=== PATIENT | female | born 1990 | race American Indian/Alaskan Native ===

== ENCOUNTER 2019-08-30 02:35 | Inpatient (IN) | payer MEDICAID ==
[2019-08-30] MEDS ORDERED: ONDANSETRON 4 MG ODT TAB PO ONE (03:04)
[2019-08-30 03:20] LABS: Basophils # (Auto) 0.1 K/mm3 (0.0-0.1); Basophils % (Auto) 0.9 % (0.0-1.8); Hematocrit 38.4 % (30.3-42.9); Hemoglobin 12.7 gm/dl (10.1-14.3); Lymphocytes # (Auto) 0.8 K/mm3 (1.2-5.4); Lymphocytes % (Auto) 10.7 % (13.4-35.0); Mean Corpuscular HGB Conc 33 % (30-34); Mean Corpuscular Volume 92 fl (79-97); Monocytes # (Auto) 0.1 K/mm3 (0.0-0.8); Monocytes % (Auto) 1.5 % (0.0-7.3); Platelet Count 347 K/mm3 (140-440); Red Blood Count 4.16 M/mm3 (3.65-5.03); Red Cell Distribution Width 14.3 % (13.2-15.2)
[2019-08-30 03:30] LABS: Alanine Aminotransferase 16 units/L (7-56); BUN/Creatinine Ratio 20; Blood Urea Nitrogen 16 mg/dL (7-17); Calcium 9.3 mg/dL (8.4-10.2); Hemolysis Index 4
[2019-08-30] MEDS ORDERED: ONDANSETRON 4 MG/2 ML INJ IV ONE (03:30)
[2019-08-30] MEDS ORDERED: SODIUM CHLORIDE 0.9% 1000 ML 1,000 ML IV ONE ×2 (03:30→03:31)
[2019-08-30] MEDS ORDERED: FAMOTIDINE 20 MG/2 ML INJ IV ONE (03:30)
[2019-08-30] MEDS ORDERED: DEXTROSE 50% IN WATER (25GM) 50 ML SYRINGE IV PRN ×2 (03:31→12:52)
[2019-08-30] MEDS ORDERED: MORPHINE 4 MG/1 ML INJ IV ONE (03:54)
--- NOTE | 2019-08-30 03:55 | Emergency Department Report ---
ED Abdominal Pain HPI - General Chief Complaint: Chest Pain Stated Complaint: ABDOMINAL/CHEST PAIN Time Seen by Provider: 08/30/19 03:45 Source: patient Mode of arrival: Ambulatory Limitations: No Limitations - History of Present Illness Initial Comments: 28-year-old female the past medical history insulin-dependent diabetes and recently diagnosed hypertension presents to the hospital planing of nausea, vomiting, abdominal pain, chest pain for the past 2 days. P.o. intolerance reported. Patient denies hematemesis, fever, or previous abdominal surgeries. Patient states she has been compliant with her insulin last dose last evening. She was recently prescribed lisinopril for newly diagnosed hypertension but has not yet initiated the medication. Patient's pain is greatest in the upper abdomen and radiates to the chest. Severity scale (0 -10): 8 - Related Data Allergies Allergy/AdvReac Type Severity Reaction Status Date / Time No Known Allergies Allergy Unverified 08/30/19 02:45 ED Review of Systems ROS: Stated complaint: ABDOMINAL/CHEST PAIN Other details as noted in HPI Comment: All other systems reviewed and negative ED Past Medical Hx - Past Medical History Hx Hypertension: Yes Hx Diabetes: Yes (Type 1 DM) - Social History Smoking Status: Never Smoker Substance Use Type: None ED Physical Exam - General Limitations: No Limitations - Other Other exam information: General: No acute distress Head: Atraumatic Eyes: normal appearance ENT: Moist mucous membranes Neck: Normal appearance, no midline tenderness Chest: Clear to auscultation bilaterally CV: Regular rate and rhythm Abdomen: Soft, normal bowel sounds, epigastric tenderness to palpation without rebound or guarding Back: Normal inspection Extremity: Normal inspection, full range of motion Neuro: Alert O x 3, no facial asymmetry, speech clear, no gross motor sensory deficit Psych: Appropriate behavior Skin: No rash ED Course Vital Signs 08/30/19 08/30/19 08/30/19 02:39 03:36 03:44 Temperature 99.2 F 98.3 F Pulse Rate 124 H 123 H Respiratory 18 20 Rate Blood Pressure 176/122 Blood Pressure 196/123 [Left] O2 Sat by Pulse 100 100 100 Oximetry 08/30/19 08/30/19 08/30/19 03:46 04:00 04:16 Temperature Pulse Rate 122 H 124 H 123 H Respiratory 16 17 15 Rate Blood Pressure 196/123 196/123 196/123 Blood Pressure [Left] O2 Sat by Pulse 100 100 100 Oximetry 08/30/19 08/30/19 08/30/19 04:31 04:45 04:51 Temperature Pulse Rate 122 H 121 H Respiratory 16 18 20 Rate Blood Pressure 203/140 Blood Pressure [Left] O2 Sat by Pulse 99 100 Oximetry 08/30/19 08/30/19 08/30/19 04:57 05:07 05:15 Temperature Pulse Rate 116 H 118 H Respiratory 20 20 20 Rate Blood Pressure 203/140 164/116 Blood Pressure [Left] O2 Sat by Pulse 100 100 100 Oximetry 08/30/19 08/30/19 08/30/19 05:21 05:31 05:45 Temperature Pulse Rate 120 H 121 H Respiratory 20 19 17 Rate Blood Pressure 164/116 203/140 Blood Pressure [Left] O2 Sat by Pulse 100 100 Oximetry 08/30/19 08/30/19 08/30/19 06:00 06:03 06:15 Temperature Pulse Rate 121 H 116 H Respiratory 18 20 22 Rate Blood Pressure 154/101 154/101 Blood Pressure [Left] O2 Sat by Pulse 100 100 Oximetry 08/30/19 08/30/19 08/30/19 06:31 06:45 07:00 Temperature Pulse Rate 109 H 107 H 103 H Respiratory 18 13 14 Rate Blood Pressure 154/101 154/101 95/58 Blood Pressure [Left] O2 Sat by Pulse 100 100 100 Oximetry 08/30/19 08/30/19 08/30/19 07:15 08:15 08:29 Temperature Pulse Rate 103 H 117 H 105 H Respiratory 13 18 16 Rate Blood Pressure 95/58 Blood Pressure 142/82 95/58 [Left] O2 Sat by Pulse 100 100 100 Oximetry 08/30/19 08/30/19 12:00 15:17 Temperature Pulse Rate 117 H 118 H Respiratory 18 Rate Blood Pressure Blood Pressure 102/72 123/80 [Left] O2 Sat by Pulse 100 Oximetry - EJ/Peripheral Line Neck L Time Out Performed: Yes Indications: nurses unable to establis Skin Cleansed in Sterile Fashion: Yes Size: 20 Dressing Placed: Tegaderm, tape Patient Tolerated Procedure: well, no complications ED Medical Decision Making - Lab Data Result diagrams: 08/30/19 02:52 08/30/19 15:29 Lab Results 05/17/20 05/17/20 05/17/20 Range/Units 02:52 02:52 02:52 WBC 7.8 (4.5-11.0) K/mm3 RBC 4.16 (3.65-5.03) M/mm3 Hgb 12.7 (10.1-14.3) gm/dl Hct 38.4 (30.3-42.9) % MCV 92 (79-97) fl MCH 31 (28-32) pg MCHC 33 (30-34) % RDW 14.3 (13.2-15.2) % Plt Count 347 (140-440) K/mm3 Lymph % (Auto) 10.7 L (13.4-35.0) % [place] % (Auto) 1.5 (0.0-7.3) % Eos % (Auto) 0.0 (0.0-4.3) % Baso % (Auto) 0.9 (0.0-1.8) % Lymph # 0.8 L (1.2-5.4) K/mm3 [place] # 0.1 (0.0-0.8) K/mm3 Eos # 0.0 (0.0-0.4) K/mm3 Baso # 0.1 (0.0-0.1) K/mm3 Seg Neutrophils % 86.9 H (40.0-70.0) % Seg Neutrophils # 6.8 (1.8-7.7) K/mm3 VBG pH (7.320-7.420) Sodium 129 L (137-145) mmol/L Potassium 4.3 (3.6-5.0) mmol/L Chloride 92.0 L (98-107) mmol/L Carbon Dioxide 10 L (22-30) mmol/L Anion Gap 31 mmol/L BUN 16 (7-17) mg/dL Creatinine 0.8 (0.7-1.2) mg/dL Estimated GFR > 60 ml/min BUN/Creatinine Ratio 20 % Glucose 394 H (65-100) mg/dL Calcium 9.3 (8.4-10.2) mg/dL Total Bilirubin 0.70 (0.1-1.2) mg/dL AST 15 (5-40) units/L ALT 16 (7-56) units/L Alkaline Phosphatase 97 (35-129) units/L Total Protein 8.3 H (6.3-8.2) g/dL Albumin 4.0 (3.9-5) g/dL Albumin/Globulin Ratio 0.9 % Lipase (13-60) units/L HCG, Qual Negative (Negative) 08/30/19 08/30/19 Range/Units 02:52 Unknown WBC (4.5-11.0) K/mm3 RBC (3.65-5.03) M/mm3 Hgb (10.1-14.3) gm/dl Hct (30.3-42.9) % MCV (79-97) fl MCH (28-32) pg MCHC (30-34) % RDW (13.2-15.2) % Plt Count (140-440) K/mm3 Lymph % (Auto) (13.4-35.0) % [place] % (Auto) (0.0-7.3) % Eos % (Auto) (0.0-4.3) % Baso % (Auto) (0.0-1.8) % Lymph # (1.2-5.4) K/mm3 [place] # (0.0-0.8) K/mm3 Eos # (0.0-0.4) K/mm3 Baso # (0.0-0.1) K/mm3 Seg Neutrophils % (40.0-70.0) % Seg Neutrophils # (1.8-7.7) K/mm3 VBG pH 7.306 L (7.320-7.420) Sodium (137-145) mmol/L Potassium (3.6-5.0) mmol/L Chloride (98-107) mmol/L Carbon Dioxide (22-30) mmol/L Anion Gap mmol/L BUN (7-17) mg/dL Creatinine (0.7-1.2) mg/dL Estimated GFR ml/min BUN/Creatinine Ratio % Glucose (65-100) mg/dL Calcium (8.4-10.2) mg/dL Total Bilirubin (0.1-1.2) mg/dL AST (5-40) units/L ALT (7-56) units/L Alkaline Phosphatase (35-129) units/L Total Protein (6.3-8.2) g/dL Albumin (3.9-5) g/dL Albumin/Globulin Ratio % Lipase 15 (13-60) units/L HCG, Qual (Negative) - EKG Data -: EKG Interpreted by Me EKG shows normal: sinus rhythm, ST-T waves (no stemi) Rate: tachycardia (121) - Radiology Data Radiology results: report reviewed . CHEST 1 VIEW INDICATION / CLINICAL INFORMATION: cp. COMPARISON: None available. FINDINGS: SUPPORT DEVICES: None. HEART / MEDIASTINUM: No significant abnormality. LUNGS / PLEURA: No significant pulmonary or pleural abnormality.. No pneumothorax. ADDITIONAL FINDINGS: No significant additional findings. IMPRESSION: 1. No acute findings. - Medical Decision Making Patient presents to the hospital with nausea, vomiting, abdominal pain. Positive DKA. CT abdomen pelvis without acute findings. Blood pressure trending downward with treatment. Patient provided pain medicine, insulin drip, Zofran, normal saline. UA collection pending at disposition - Differential Diagnosis Gastroparesis, pancreatitis, biliary colic, DKA Critical Care Time: Yes Critical care time in (mins) excluding proc time.: 35 Critical care attestation.: If time is entered above; I have spent that time in minutes in the direct care of this critically ill patient, excluding procedure time. ED Disposition Clinical Impression: DKA (diabetic ketoacidoses), Uncontrolled hypertension, Nausea and vomiting Disposition: -09 OP ADMIT IP TO THIS HOSP Is pt being admited?: Yes Condition: Stable Time of Disposition: 05:44 (Dr sibley)
--- NOTE | 2019-08-30 03:55 | XRay Report ---
CHEST 1 VIEW INDICATION / CLINICAL INFORMATION: cp. COMPARISON: None available. FINDINGS: SUPPORT DEVICES: None. HEART / MEDIASTINUM: No significant abnormality. LUNGS / PLEURA: No significant pulmonary or pleural abnormality.. No pneumothorax. ADDITIONAL FINDINGS: No significant additional findings. IMPRESSION: 1. No acute findings. Signer Name: Miguel Colon MD Signed: 08/30/2019 3:51 AM Workstation Name: [id number]
--- NOTE | 2019-08-30 05:22 | Cat Scan Report ---
CT abdomen pelvis wo con INDICATION: upper abd pain, n,v. TECHNIQUE: All CT scans at this location are performed using the following dose modulation technique: Automated exposure control. Helical slices were obtained through the abdomen and pelvis. No contrast is adminis tered COMPARISON: None available. FINDINGS: Abdomen: Lung bases are clear. There is a hiatal hernia. The liver, spleen, pancreas, adrenal glands, and kidneys show no acute abnormality. The aorta is normal in diameter. There is no obstruction, inf lammation, or free air. There are no abnormal fluid collections. The appendix is unremarkable. Pelvis: Urinary bladder is significantly distended. There is no bowel obstruction or inflammation. There is no adenopathy. On review of bone windows, no acute osseous abnormalities are seen. IMPRESSION: There is significant distention of the urinary bladder. There is a small hiatal hernia. There is no bowel obstruction, inflammation, or free air. There are no abnormal collections. Signer Name: Miguel Colon MD Signed: 08/30/2019 5:18 AM Workstation Name: [id number]
[2019-08-30] MEDS: INSULIN REGULAR, HUMAN 100 UNITS in SODIUM CHLORIDE 0.9% 99 ML IV SCH (05:29)
[2019-08-30] MEDS ORDERED: HYDROmorphone 1 MG/1 ML INJ IV ONE (05:44)
[2019-08-30 06:10] LABS: BUN/Creatinine Ratio 23; Blood Urea Nitrogen 18 mg/dL (7-17); Hemolysis Index 10
[2019-08-30 07:11] LABS: Bacteria,Urine 1+ /HPF (Negative); Bilirubin,Urine NEG (Negative); Blood,Urine NEG (Negative); Color,Urine Yellow (Yellow); Mucus,Urine FEW /HPF; Urobilinogen,Urine < 2.0 mg/dL (<2.0)
[2019-08-30] MEDS ORDERED: D5W/0.45% NACL/KCL 20 MEQ 20 MEQ/1,000 ML BAG IV SCH (08:00)
[2019-08-30] MEDS ORDERED: POTASSIUM CHLORIDE 10 MEQ 10 MEQ/100 ML BAG IV PRN (08:00)
--- NOTE | 2019-08-30 08:04 | History and Physical Report ---
History of Present Illness Date of examination: 08/30/19 Date of admission: 08/30/19 Chief complaint: DKA History of present illness: Patient is a 28-year-old female with past medical history of insulin-dependent diabetes (on insulin pump ) and hypertension presented to the hospital with complaint of chest pain that started for 2 days reproducible and also abdominal pain. Per the patient she was seen at an urgent care facility was noted to have a blood sugar of over 400 at the time but told she was not in DKA but diagnosed with a UTI and was sent home on antibiotics which unfortunately she was unable to feel. She discontinued her insulin pump due to intermittent nausea and vomiting and abdominal pain and was able to tolerate p.o. and today the symptoms worsened prompting her to come to the hospital where she was noted to be in diabetic ketoacidosis. She was also recently diagnosed with hypertension and started on lisinopril but has not started the medication yet. At the time of my evaluation she reported that the chest pain is improved but still feels nauseous although no further vomiting. She still expresses the abdominal pain. Denies any fever. Past History Past Medical History: diabetes, hypertension Past Surgical History: No surgical history Social history: no significant social history Family history: no significant family history Medications and Allergies Allergies Allergy/AdvReac Type Severity Reaction Status Date / Time No Known Allergies Allergy Unverified 08/30/19 02:45 Active Meds: Active Medications Dextrose (D50w (25gm) Syringe) 0 ml IV Q30MIN PRN; Protocol PRN Reason: Hypoglycemia Insulin Human Regular 100 (units/ Sodium Chloride) 100 mls @ 1 mls/hr IV TITR JOSHUA; Protocol Last Titration: 08/30/19 06:41 Dose: 5 units/hr, 5 mls/hr Documented by: Potassium Chloride/Dextrose/Sod Cl (D5w/0.45% Nacl/Kcl 20 Meq) 20 meq in 1,000 mls @ 125 mls/hr IV DIRECT JOSHUA Potassium Chloride (Kcl 10meq/100ml) 10 meq in 100 mls @ 100 mls/hr IV Q1H JOSHUA Stop: 08/30/19 11:59 Sodium Chloride (Nacl 0.9% 1000 Ml) 3,000 mls @ 999 mls/hr IV BOLUS ONE Stop: 08/30/19 10:57 Review of Systems All systems: negative Constitutional: fatigue, weakness, poor appetite Gastrointestinal: nausea, vomiting Exam - Physical Exam Narrative exam: VITAL SIGNS: Reviewed. GENERAL: The patient appears normally developed, lethargic vital signs as documented. HEAD: No signs of head trauma. EYES: Pupils are equal. Extraocular motions intact. EARS: Hearing grossly intact. MOUTH: Oropharynx is normal. NECK: No adenopathy, no JVD. CHEST: Chest with clear breath sounds bilaterally. No wheezes, rales, or rhonchi. CARDIAC: Regular rate and rhythm. S1 and S2, without murmurs, gallops, or rubs. VASCULAR: No Edema. Peripheral pulses normal and equal in all extremities. ABDOMEN: Soft, non tender and non distended. No rebound or guarding, and no masses palpated. Bowel Sounds normal. MUSCULOSKELETAL: Good range of motion of all major joints. Extremities without clubbing, cyanosis or edema. NEUROLOGIC EXAM: Alert and oriented x 3 No focal sensory or strength deficits. Speech normal. Follows commands. PSYCHIATRIC: Mood normal. SKIN: detail exam as documented in skin assessment - Constitutional Vitals: Temp Pulse Resp BP Pulse Ox 98.3 F 103 H 13 95/58 100 08/30/19 03:44 08/30/19 07:15 08/30/19 07:15 08/30/19 07:15 08/30/19 07:15 Results - Labs CBC & Chem 7: 08/30/19 02:52 08/30/19 08:01 Labs: Laboratory Last Values WBC 7.8 K/mm3 (4.5-11.0) 08/30/19 02:52 RBC 4.16 M/mm3 (3.65-5.03) 08/30/19 02:52 Hgb 12.7 gm/dl (10.1-14.3) 08/30/19 02:52 Hct 38.4 % (30.3-42.9) 08/30/19 02:52 MCV 92 fl (79-97) 08/30/19 02:52 MCH 31 pg (28-32) 08/30/19 02:52 MCHC 33 % (30-34) 08/30/19 02:52 RDW 14.3 % (13.2-15.2) 08/30/19 02:52 Plt Count 347 K/mm3 (140-440) 08/30/19 02:52 Lymph % (Auto) 10.7 % (13.4-35.0) L 08/30/19 02:52 [place] % (Auto) 1.5 % (0.0-7.3) 08/30/19 02:52 Eos % (Auto) 0.0 % (0.0-4.3) 08/30/19 02:52 Baso % (Auto) 0.9 % (0.0-1.8) 08/30/19 02:52 Lymph # 0.8 K/mm3 (1.2-5.4) L 08/30/19 02:52 [place] # 0.1 K/mm3 (0.0-0.8) 08/30/19 02:52 Eos # 0.0 K/mm3 (0.0-0.4) 08/30/19 02:52 Baso # 0.1 K/mm3 (0.0-0.1) 08/30/19 02:52 Seg Neutrophils % 86.9 % (40.0-70.0) H 08/30/19 02:52 Seg Neutrophils # 6.8 K/mm3 (1.8-7.7) 08/30/19 02:52 VBG pH 7.306 (7.320-7.420) L 08/30/19 02:52 Sodium 130 mmol/L (137-145) L 08/30/19 05:31 Potassium 4.5 mmol/L (3.6-5.0) 08/30/19 05:31 Chloride 94.8 mmol/L (98-107) L 08/30/19 05:31 Carbon Dioxide 8 mmol/L (22-30) L* 08/30/19 05:31 Anion Gap 32 mmol/L 08/30/19 05:31 BUN 18 mg/dL (7-17) H 08/30/19 05:31 Creatinine 0.8 mg/dL (0.7-1.2) 08/30/19 05:31 Estimated GFR > 60 ml/min 08/30/19 05:31 BUN/Creatinine Ratio 23 % 08/30/19 05:31 Glucose 393 mg/dL (65-100) H 08/30/19 05:31 Calcium 9.0 mg/dL (8.4-10.2) 08/30/19 05:31 Phosphorus 3.00 mg/dL (2.5-4.5) 08/30/19 05:31 Total Bilirubin 0.70 mg/dL (0.1-1.2) 08/30/19 02:52 AST 15 units/L (5-40) 08/30/19 02:52 ALT 16 units/L (7-56) 08/30/19 02:52 Alkaline Phosphatase 97 units/L (35-129) 08/30/19 02:52 Total Protein 8.3 g/dL (6.3-8.2) H 08/30/19 02:52 Albumin 4.0 g/dL (3.9-5) 08/30/19 02:52 Albumin/Globulin Ratio 0.9 % 08/30/19 02:52 Lipase 15 units/L (13-60) 08/30/19 Unknown HCG, Qual Negative (Negative) 08/30/19 02:52 Urine Color Yellow (Yellow) 08/30/19 05:42 Urine Turbidity Cloudy (Clear) 08/30/19 05:42 Urine pH 5.0 (5.0-7.0) 08/30/19 05:42 Ur Specific [place] 1.022 (1.003-1.030) 08/30/19 05:42 Urine Protein 100 mg/dl mg/dL (Negative) 08/30/19 05:42 Urine Glucose (UA) >=500 mg/dL (Negative) 08/30/19 05:42 Urine Ketones 80 mg/dL (Negative) 08/30/19 05:42 Urine Blood Neg (Negative) 08/30/19 05:42 Urine Nitrite Neg (Negative) 08/30/19 05:42 Urine Bilirubin Neg (Negative) 08/30/19 05:42 Urine Urobilinogen < 2.0 mg/dL (<2.0) 08/30/19 05:42 Ur Leukocyte Esterase Neg (Negative) 08/30/19 05:42 Urine WBC (Auto) 4.0 /HPF (0.0-6.0) 08/30/19 05:42 Urine RBC (Auto) 2.0 /HPF (0.0-6.0) 08/30/19 05:42 U Epithel Cells (Auto) 43.0 /HPF (0-13.0) H 08/30/19 05:42 Urine Bacteria (Auto) 1+ /HPF (Negative) 08/30/19 05:42 Urine Mucus Few /HPF 08/30/19 05:42 Terry/IV: IV Catheter Type [Left INT / Saline Lock External Jugular] Assessment and Plan Assessment and plan: Patient is a 28-year-old female with past medical history of insulin-dependent diabetes (on insulin pump ) and hypertension presented to the hospital with complaint of chest pain that started for 2 days reproducible and also abdominal pain. Per the patient she was seen at an urgent care facility was noted to have a blood sugar of over 400 at the time but told she was not in DKA but diagnosed with a UTI and was sent home on antibiotics which unfortunately she was unable to feel. She discontinued her insulin pump due to intermittent nausea and vomiting and abdominal pain and was able to tolerate p.o. and today the symptoms worsened prompting her to come to the hospital where she was noted to be in diabetic ketoacidosis. She was also recently diagnosed with hypertension and started on lisinopril but has not started the medication yet. At the time of my evaluation she reported that the chest pain is improved but still feels nauseous although no further vomiting. She still expresses the abdominal pain. Denies any fever. Diabetic ketoacidosis Metabolic acidosis severe Abdominal pain Chest pain secondary to costochondritis Hiatal hernia Persistent nausea vomiting Plan Admit patient to ICU Critical care consult Insulin drip has been started will give additional 3 L of bolus of fluid Sodium bicarb Discussed with nursing staff about transition plan transition insulin is ordered Pain control Restart blood pressure medications. DVT and GI prophylaxis Critical care time 75 minutes Advance Directives: Yes Plan of care discussed with patient/family: Yes
[2019-08-30] MEDS ORDERED: SODIUM CHLORIDE 0.9% 1000 ML 3,000 ML IV ONE (08:15)
[2019-08-30] MEDS: KETOROLAC 30 MG/1 ML INJ IV SCH ×4 (08:53→23:47)
[2019-08-30] MEDS ORDERED: SODIUM BICARBONATE 50 MEQ in SODIUM CHLORIDE 0.9% 1000 ML 1,000 ML IV SCH (09:00)
[2019-08-30 09:01] LABS: BUN/Creatinine Ratio 24; Blood Urea Nitrogen 17 mg/dL (7-17); Calcium 8.4 mg/dL (8.4-10.2); Hemolysis Index 12
[2019-08-30 09:33] LABS: Chol/HDL Ratio 1.45 %
--- NOTE | 2019-08-30 10:31 | Consultation ---
Medications and Allergies Allergies Allergy/AdvReac Type Severity Reaction Status Date / Time No Known Allergies Allergy Unverified 08/30/19 02:45 Active Meds: Active Medications Dextrose (D50w (25gm) Syringe) 0 ml IV Q30MIN PRN; Protocol PRN Reason: Hypoglycemia Gabapentin (Gabapentin) 400 mg PO Q8HR JOSHUA Insulin Human Regular 100 (units/ Sodium Chloride) 100 mls @ 1 mls/hr IV TITR JOSHUA; Protocol Last Titration: 08/30/19 10:14 Dose: 0 units/hr, 0 mls/hr Documented by: Potassium Chloride/Dextrose/Sod Cl (D5w/0.45% Nacl/Kcl 20 Meq) 20 meq in 1,000 mls @ 125 mls/hr IV DIRECT JOSHUA Potassium Chloride (Kcl 10meq/100ml) 10 meq in 100 mls @ 100 mls/hr IV Q1H PRN PRN Reason: FOR K REPLACEMENT/DKA PROTOCOL Sodium Chloride (Nacl 0.9% 1000 Ml) 3,000 mls @ 999 mls/hr IV BOLUS ONE Stop: 08/30/19 11:15 Last Admin: 08/30/19 08:21 Dose: 999 mls/hr Documented by: Sodium Bicarbonate 50 meq/ (Sodium Chloride) 1,050 mls @ 100 mls/hr IV DIRECT JOSHUA Last Admin: 08/30/19 09:30 Dose: 100 mls/hr Documented by: Ketorolac Tromethamine (Toradol) 15 mg IV Q6HR JOSHUA Stop: 09/04/19 08:59 Last Admin: 08/30/19 08:53 Dose: 15 mg Documented by: Levothyroxine Sodium (Synthroid) 25 mcg PO DAILY@0600 JOSHUA Metoclopramide HCl (Reglan) 10 mg IV Q6H PRN PRN Reason: Nausea And Vomiting Sertraline HCl (Zoloft) 25 mg PO QDAY JOSHUA Physical Examination Vital signs: Vital Signs Temp Pulse Resp BP Pulse Ox 99.2 F 124 H 18 176/122 100 08/30/19 02:39 08/30/19 02:39 08/30/19 02:39 08/30/19 02:39 08/30/19 02:39 Results - Laboratory Findings CBC and BMP: 08/30/19 02:52 08/30/19 08:01 Abnormal lab findings: Abnormal Labs 0508/30/19 08/30/19 02:52 02:52 02:52 Lymph % (Auto) 10.7 L Lymph # 0.8 L Seg Neutrophils % 86.9 H VBG pH 7.306 L Sodium 129 L Chloride 92.0 L Carbon Dioxide 10 L BUN Glucose 394 H Hemoglobin A1c Total Protein 8.3 H HDL Cholesterol U Epithel Cells (Auto) 08/30/19 08/30/19 08/30/19 05:31 05:42 08:01 Lymph % (Auto) Lymph # Seg Neutrophils % VBG pH Sodium 130 L Chloride 94.8 L 107.7 H Carbon Dioxide 8 L* 11 L BUN 18 H Glucose 393 H 211 H Hemoglobin A1c Total Protein HDL Cholesterol U Epithel Cells (Auto) 43.0 H 08/30/19 08/30/19 08:33 08:33 Lymph % (Auto) Lymph # Seg Neutrophils % VBG pH Sodium Chloride Carbon Dioxide BUN Glucose Hemoglobin A1c 11.6 H Total Protein HDL Cholesterol 125 H U Epithel Cells (Auto)
[2019-08-30] MEDS: SERTRALINE 25 MG TAB PO SCH (10:57)
--- NOTE | 2019-08-30 11:06 | Consultation ---
History of Present Illness - History of Present Illness This is a female with a known history of diabetes. She had been doing well. She was recently diagnosed with HTN. She began having abdominal pain associated with nausea and emesis. She reported that the pain radiated to her chest. She also reported signif decrease in appetite. She can to er and was found to be in DKA. She was started on fluids and insulin drip. She reports a hx of DKA in the past. She is on insulin pump and take humalog. She reports epigatric discomfort Past History Past Medical History: diabetes, hypertension, other (reflux) Past Surgical History: No surgical history Social history: lives with family Family history: hypertension Medications and Allergies Allergies Allergy/AdvReac Type Severity Reaction Status Date / Time No Known Allergies Allergy Unverified 08/30/19 02:45 Active Meds: Active Medications Dextrose (D50w (25gm) Syringe) 0 ml IV Q30MIN PRN; Protocol PRN Reason: Hypoglycemia Gabapentin (Gabapentin) 400 mg PO Q8HR [facility] Insulin Human Regular 100 (units/ Sodium Chloride) 100 mls @ 1 mls/hr IV TITR JOSHUA; Protocol Last Titration: 08/30/19 10:14 Dose: 0 units/hr, 0 mls/hr Documented by: Potassium Chloride/Dextrose/Sod Cl (D5w/0.45% Nacl/Kcl 20 Meq) 20 meq in 1,000 mls @ 125 mls/hr IV DIRECT JOSHUA Potassium Chloride (Kcl 10meq/100ml) 10 meq in 100 mls @ 100 mls/hr IV Q1H PRN PRN Reason: FOR K REPLACEMENT/DKA PROTOCOL Sodium Chloride (Nacl 0.9% 1000 Ml) 3,000 mls @ 999 mls/hr IV BOLUS ONE Stop: 08/30/19 11:15 Last Admin: 08/30/19 08:21 Dose: 999 mls/hr Documented by: Sodium Bicarbonate 50 meq/ (Sodium Chloride) 1,050 mls @ 100 mls/hr IV DIRECT JOSHUA Last Admin: 08/30/19 09:30 Dose: 100 mls/hr Documented by: Ketorolac Tromethamine (Toradol) 15 mg IV Q6HR JOSHUA Stop: 09/04/19 08:59 Last Admin: 08/30/19 08:53 Dose: 15 mg Documented by: Levothyroxine Sodium (Synthroid) 25 mcg PO DAILY@0600 [facility] Metoclopramide HCl (Reglan) 10 mg IV Q6H PRN PRN Reason: Nausea And Vomiting Sertraline HCl (Zoloft) 25 mg PO QDAY [facility] Last Admin: 08/30/19 10:57 Dose: 25 mg Documented by: Review of Systems Constitutional: weakness, malaise, poor appetite Breasts: deferred Gastrointestinal: abdominal pain, nausea, vomiting, loss of appetite Exam - Constitutional Vitals: Temp Pulse Resp BP Pulse Ox 98.3 F 105 H 16 95/58 100 08/30/19 03:44 08/30/19 08:29 08/30/19 08:29 08/30/19 08:29 08/30/19 08:29 General appearance: Present: no acute distress, well-nourished - EENT Eyes: Present: PERRL, EOM intact ENT: hearing intact, clear oral mucosa, dentition normal - Neck Neck: Present: supple, normal ROM - Respiratory Respiratory effort: normal Respiratory: bilateral: CTA - Cardiovascular Rhythm: regular Heart Sounds: Present: S1 & S2 - Extremities Extremities: no ischemia, pulses intact Peripheral Pulses: within normal limits - Abdominal General gastrointestinal: Present: soft, non-distended - Psychiatric Psychiatric: appropriate mood/affect - Neurologic Neurologic: CNII-XII intact Results - Labs CBC & Chem 7: 08/30/19 02:52 08/30/19 08:01 Labs: Abnormal lab results 08/30/19 08/30/19 08/30/19 Range/Units 02:52 02:52 02:52 Lymph % (Auto) 10.7 L (13.4-35.0) % Lymph # 0.8 L (1.2-5.4) K/mm3 Seg Neutrophils % 86.9 H (40.0-70.0) % VBG pH 7.306 L (7.320-7.420) Sodium 129 L (137-145) mmol/L Chloride 92.0 L (98-107) mmol/L Carbon Dioxide 10 L (22-30) mmol/L BUN (7-17) mg/dL Glucose 394 H (65-100) mg/dL Hemoglobin A1c (4-6) % Total Protein 8.3 H (6.3-8.2) g/dL HDL Cholesterol (40-59) mg/dL U Epithel Cells (Auto) (0-13.0) /HPF 08/30/19 08/30/19 08/30/19 Range/Units 05:31 05:42 08:01 Lymph % (Auto) (13.4-35.0) % Lymph # (1.2-5.4) K/mm3 Seg Neutrophils % (40.0-70.0) % VBG pH (7.320-7.420) Sodium 130 L (137-145) mmol/L Chloride 94.8 L 107.7 H (98-107) mmol/L Carbon Dioxide 8 L* 11 L (22-30) mmol/L BUN 18 H (7-17) mg/dL Glucose 393 H 211 H (65-100) mg/dL Hemoglobin A1c (4-6) % Total Protein (6.3-8.2) g/dL HDL Cholesterol (40-59) mg/dL U Epithel Cells (Auto) 43.0 H (0-13.0) /HPF 08/30/19 08/30/19 Range/Units 08:33 08:33 Lymph % (Auto) (13.4-35.0) % Lymph # (1.2-5.4) K/mm3 Seg Neutrophils % (40.0-70.0) % VBG pH (7.320-7.420) Sodium (137-145) mmol/L Chloride (98-107) mmol/L Carbon Dioxide (22-30) mmol/L BUN (7-17) mg/dL Glucose (65-100) mg/dL Hemoglobin A1c 11.6 H (4-6) % Total Protein (6.3-8.2) g/dL HDL Cholesterol 125 H (40-59) mg/dL U Epithel Cells (Auto) (0-13.0) /HPF - Imaging and Cardiology Chest x-ray: report reviewed, image reviewed CT scan - abdomen: report reviewed Assessment and Plan - Patient Problems (1) Hiatal hernia Current Visit: Yes Status: Acute (2) Abdominal pain Current Visit: Yes Status: Acute (3) Diabetes Current Visit: Yes Status: Acute (4) Volume depletion Current Visit: Yes Status: Acute (5) DKA (diabetic ketoacidoses) Current Visit: Yes Status: Acute (6) Nausea and vomiting Current Visit: Yes Status: Acute
[2019-08-30] MEDS ORDERED: PANTOPRAZOLE 40 MG INJ IV SCH (12:00)
[2019-08-30] MEDS ORDERED: D5W/0.45% NACL 1,000 ML IV ONE (12:08)
[2019-08-30] MEDS: D5W/0.45% NACL 1,000 ML IV SCH ×2 (12:11→19:46)
[2019-08-30] MEDS ORDERED: SODIUM BICARB 8.4% 50 MEQ/50 ML SYRINGE IV ONE ×3 (14:47→23:25)
[2019-08-30] MEDS ORDERED: PANTOPRAZOLE 40 MG INJ IV ONE (15:00)
[2019-08-30] MEDS: GABAPENTIN 500 MG/10 ML ORAL LIQD PO SCH ×2 (15:03→22:37)
[2019-08-30 15:55] LABS: Creatine Kinase MB 1.2 ng/mL (0.0-4.0)
[2019-08-30 15:58] LABS: BUN/Creatinine Ratio 18; Blood Urea Nitrogen 14 mg/dL (7-17); Hemolysis Index 16
[2019-08-30] MEDS ORDERED: MORPHINE 2 MG/1 ML INJ IV ONE (16:15)
[2019-08-30] MEDS ORDERED: MORPHINE 2 MG/1 ML INJ ONE (16:20)
[2019-08-30] MEDS: METOCLOPRAMIDE 10 MG/2 ML INJ IV PRN (17:36)
[2019-08-30] MEDS: MORPHINE 2 MG/1 ML INJ IV PRN (20:50)
[2019-08-30 21:28] LABS: Creatine Kinase MB 1.6 ng/mL (0.0-4.0)
[2019-08-30 21:33] LABS: BUN/Creatinine Ratio 15; Blood Urea Nitrogen 12 mg/dL (7-17); Calcium 8.9 mg/dL (8.4-10.2); Hemolysis Index 2
[2019-08-30] MEDS: INSULIN LISPRO 100 UNIT/ML SUB-Q SCH (23:00)
[2019-08-31] MEDS: INSULIN REGULAR, HUMAN 100 UNITS in SODIUM CHLORIDE 0.9% 99 ML IV SCH (00:16)
[2019-08-31] MEDS: D5W/0.45% NACL 1,000 ML IV SCH (04:23)
[2019-08-31] MEDS: MORPHINE 2 MG/1 ML INJ IV PRN ×3 (04:23→13:20)
[2019-08-31] MEDS: LEVOTHYROXINE 25 MCG TAB PO SCH (05:54)
[2019-08-31] MEDS: KETOROLAC 30 MG/1 ML INJ IV SCH ×4 (05:54→23:18)
[2019-08-31] MEDS: GABAPENTIN 500 MG/10 ML ORAL LIQD PO SCH ×3 (06:02→23:19)
[2019-08-31] MEDS ORDERED: MORPHINE 2 MG/1 ML INJ IV ONE (06:29)
[2019-08-31 07:35] LABS: BUN/Creatinine Ratio 13; Blood Urea Nitrogen 8 mg/dL (7-17); Calcium 8.3 mg/dL (8.4-10.2); Hemolysis Index 11
[2019-08-31] MEDS: INSULIN LISPRO 100 UNIT/ML SUB-Q SCH ×5 (07:35→23:19)
[2019-08-31] MEDS ORDERED: INSULIN REGULAR, HUMAN 100 UNITS/1 ML SUB-Q ONE (08:30)
[2019-08-31] MEDS ORDERED: POTASSIUM CHLORIDE ER 20 MEQ TAB PO ONE (09:00)
[2019-08-31] MEDS: SERTRALINE 25 MG TAB PO SCH (09:01)
[2019-08-31] MEDS: PANTOPRAZOLE 40 MG TAB PO SCH (09:01)
[2019-08-31] MEDS: METOCLOPRAMIDE 10 MG/2 ML INJ IV PRN ×3 (09:22→21:44)
--- NOTE | 2019-08-31 10:48 | Progress Note ---
Assessment and Plan 28 y/o female with Diaetes and HTN admitted with DKA 1. Long acting insulin 2. Feed patient 3. BP control per IMS 4. Agree with transfer out of unit. Subjective Date of service: 08/31/19 Interval history: No acute events. Anion Gap has improved. Down to 13 this am. BP elevated. Objective - Constitutional Vitals: Vital Signs - 12hr 08/30/19 08/30/19 08/30/19 22:51 23:00 23:11 Temperature Pulse Rate 116 H 116 H 115 H Pulse Rate [ From Monitor] Respiratory 13 12 12 Rate Blood Pressure 189/144 195/139 195/139 O2 Sat by Pulse Oximetry 08/30/19 08/30/19 08/30/19 23:18 23:19 23:21 Temperature Pulse Rate 110 H 107 H Pulse Rate [ 108 H From Monitor] Respiratory 20 16 18 Rate Blood Pressure 195/139 195/139 O2 Sat by Pulse 100 Oximetry 08/30/19 08/30/19 08/30/19 23:31 23:41 23:51 Temperature Pulse Rate 108 H 107 H 110 H Pulse Rate [ From Monitor] Respiratory 15 11 L 11 L Rate Blood Pressure 195/139 195/139 143/97 O2 Sat by Pulse Oximetry 08/31/19 08/31/19 08/31/19 00:00 00:01 00:11 Temperature 98.7 F Pulse Rate 118 H 120 H Pulse Rate [ From Monitor] Respiratory 12 17 Rate Blood Pressure 180/126 180/126 O2 Sat by Pulse Oximetry 08/31/19 08/31/19 08/31/19 00:21 00:31 00:41 Temperature Pulse Rate 119 H 116 H 115 H Pulse Rate [ From Monitor] Respiratory 11 L 12 11 L Rate Blood Pressure 180/126 180/126 180/126 O2 Sat by Pulse Oximetry 08/31/19 08/31/19 08/31/19 00:51 01:00 01:11 Temperature Pulse Rate 114 H 115 H 115 H Pulse Rate [ From Monitor] Respiratory 11 L 12 Rate Blood Pressure 180/126 181/118 174/126 O2 Sat by Pulse Oximetry 08/31/19 08/31/19 08/31/19 01:21 01:31 01:41 Temperature Pulse Rate 114 H 113 H 113 H Pulse Rate [ From Monitor] Respiratory Rate Blood Pressure 174/126 174/126 174/126 O2 Sat by Pulse Oximetry 08/31/19 08/31/19 08/31/19 01:51 02:01 02:11 Temperature Pulse Rate 105 H 111 H 102 H Pulse Rate [ From Monitor] Respiratory Rate Blood Pressure 174/126 148/96 148/96 O2 Sat by Pulse Oximetry 08/31/19 08/31/19 08/31/19 02:21 02:31 02:41 Temperature Pulse Rate 99 H 99 H 98 H Pulse Rate [ From Monitor] Respiratory Rate Blood Pressure 148/96 148/96 148/96 O2 Sat by Pulse Oximetry 08/31/19 08/31/19 08/31/19 02:51 03:00 03:11 Temperature Pulse Rate 97 H 97 H 97 H Pulse Rate [ From Monitor] Respiratory Rate Blood Pressure 148/96 124/80 124/80 O2 Sat by Pulse Oximetry 08/31/19 08/31/19 08/31/19 03:18 03:21 03:31 Temperature Pulse Rate 91 H 97 H Pulse Rate [ 111 H From Monitor] Respiratory 20 Rate Blood Pressure 124/80 124/80 O2 Sat by Pulse 100 Oximetry 08/31/19 08/31/19 08/31/19 03:41 03:51 04:00 Temperature 98.8 F Pulse Rate 110 H 103 H 112 H Pulse Rate [ From Monitor] Respiratory Rate Blood Pressure 124/80 124/80 179/140 O2 Sat by Pulse Oximetry 08/31/19 08/31/19 08/31/19 04:11 04:21 04:31 Temperature Pulse Rate 118 H 117 H 110 H Pulse Rate [ From Monitor] Respiratory Rate Blood Pressure 179/140 179/140 179/140 O2 Sat by Pulse Oximetry 08/31/19 08/31/19 08/31/19 04:41 05:00 05:15 Temperature Pulse Rate 112 H 112 H Pulse Rate [ From Monitor] Respiratory 36 H Rate Blood Pressure 179/140 197/137 197/137 O2 Sat by Pulse Oximetry 08/31/19 08/31/19 08/31/19 05:21 05:31 05:41 Temperature Pulse Rate 111 H 108 H 109 H Pulse Rate [ From Monitor] Respiratory 12 12 10 L Rate Blood Pressure 197/137 197/137 197/137 O2 Sat by Pulse Oximetry 08/31/19 08/31/19 08/31/19 05:51 06:00 06:11 Temperature Pulse Rate 109 H 107 H 110 H Pulse Rate [ From Monitor] Respiratory 12 8 L 12 Rate Blood Pressure 197/137 185/132 192/149 O2 Sat by Pulse Oximetry 08/31/19 08/31/19 08/31/19 06:21 06:31 06:41 Temperature Pulse Rate 110 H 107 H 100 H Pulse Rate [ From Monitor] Respiratory 11 L 16 9 L Rate Blood Pressure 194/150 194/150 193/128 O2 Sat by Pulse 100 100 100 Oximetry 08/31/19 08/31/19 08/31/19 06:50 07:00 07:11 Temperature Pulse Rate 92 H 97 H 91 H Pulse Rate [ 96 H From Monitor] Respiratory 13 12 12 Rate Blood Pressure 141/89 126/94 126/94 O2 Sat by Pulse 100 100 100 Oximetry 08/31/19 08/31/19 08:00 09:21 Temperature 98.8 F Pulse Rate Pulse Rate [ From Monitor] Respiratory 17 Rate Blood Pressure O2 Sat by Pulse Oximetry - Labs CBC & Chem 7: 08/30/19 02:52 08/31/19 06:29 Labs: Abnormal lab results 08/30/19 08/30/19 08/31/19 Range/Units 15:29 20:37 06:29 Sodium 136 L (137-145) mmol/L Potassium 3.2 L (3.6-5.0) mmol/L Chloride 107.7 H (98-107) mmol/L Carbon Dioxide 10 L 9 L* 19 L D (22-30) mmol/L Creatinine 0.6 L (0.7-1.2) mg/dL Glucose 240 H 271 H 148 H (65-100) mg/dL Calcium 8.0 L 8.3 L (8.4-10.2) mg/dL Medications & Allergies - Medications Allergies/Adverse Reactions: Allergies No Known Allergies Allergy (Unverified 08/30/19 02:45) Active Medications: Generic Name Dose Route Start Last Admin Trade Name Freq PRN Reason Stop Dose Admin Dextrose 0 ml 08/30/19 03:31 D50w (25gm) Syringe IV Q30MIN PRN Hypoglycemia Protocol Gabapentin 400 mg 08/30/19 14:00 08/31/19 06:02 Gabapentin PO 400 mg Q8HR JOSHUA Administration Dextrose/Sodium Chloride 1,000 mls @ 125 mls/hr 08/30/19 12:00 08/31/19 04:23 D5/0.45ns IV 08/31/19 11:59 125 mls/hr DIRECT JOSHUA Administration Insulin Glargine 20 units 08/31/19 22:00 Lantus SUB-Q QHS JOSHUA Insulin Human Lispro 0 unit 08/30/19 16:30 08/31/19 07:35 Humalog SUB-Q Not Given ACHS [facility] Protocol Ketorolac Tromethamine 15 mg 08/30/19 09:00 08/31/19 05:54 Toradol IV 09/04/19 08:59 15 mg Q6HR JOSHUA Administration Levothyroxine Sodium 25 mcg 08/31/19 06:00 08/31/19 05:54 Synthroid PO 25 mcg DAILY@0600 [facility] Administration Metoclopramide HCl 10 mg 08/30/19 08:23 08/31/19 09:22 Reglan IV 10 mg Q6H PRN Administration Nausea And Vomiting Morphine Sulfate 1 mg 08/30/19 20:24 08/31/19 09:21 Morphine IV 1 mg Q4H PRN Administration Pain, Moderate (4-6) Pantoprazole Sodium 40 mg 08/31/19 10:00 08/31/19 09:01 Protonix PO 40 mg DAILY JOSHUA Administration Sertraline HCl 25 mg 08/30/19 10:00 08/31/19 09:01 Zoloft PO 25 mg QDAY JOSHUA Administration HEART Score - HEART Score Troponin: Troponin T < 0.010 ng/mL (0.00-0.029) 08/30/19 20:37
--- NOTE | 2019-08-31 17:39 | Progress Note ---
Assessment and Plan Assessment and plan: Patient is a 28-year-old female with past medical history of insulin-dependent diabetes (on insulin pump ) and hypertension presented to the hospital with complaint of chest pain that started for 2 days reproducible and also abdominal pain. Per the patient she was seen at an urgent care facility was noted to have a blood sugar of over 400 at the time but told she was not in DKA but diagnosed with a UTI and was sent home on antibiotics which unfortunately she was unable to feel. She discontinued her insulin pump due to intermittent nausea and vomiting and abdominal pain and was able to tolerate p.o. and today the symptoms worsened prompting her to come to the hospital where she was noted to be in diabetic ketoacidosis. She was also recently diagnosed with hypertension and started on lisinopril but has not started the medication yet. At the time of my evaluation she reported that the chest pain is improved but still feels nauseous although no further vomiting. She still expresses the abdominal pain. Denies any fever. Diabetic ketoacidosis Gap closed Metabolic acidosis severe Hypokalemia Abdominal pain Chest pain secondary to costochondritis Hiatal hernia Persistent nausea vomiting Plan Can transfer Critical care consult Transition long acting insulin Replace K Counselling on use of her INSULIN DRIP Sodium bicarb Discussed with nursing staff about transition plan transition insulin is ordered Pain control Restart blood pressure medications. DVT and GI prophylaxis History Interval history: Patient seen and examined, resting comfortable, later today complained of abdominal pain. 3/10 in intensity Hospitalist Physical - Physical exam Narrative exam: VITAL SIGNS: Reviewed. GENERAL: The patient appears normally developed, lethargic vital signs as documented. HEAD: No signs of head trauma. EYES: Pupils are equal. Extraocular motions intact. EARS: Hearing grossly intact. MOUTH: Oropharynx is normal. NECK: No adenopathy, no JVD. CHEST: Chest with clear breath sounds bilaterally. No wheezes, rales, or rhonchi. CARDIAC: Regular rate and rhythm. S1 and S2, without murmurs, gallops, or rubs. VASCULAR: No Edema. Peripheral pulses normal and equal in all extremities. ABDOMEN: Soft, generalized tenderness and non distended. No rebound or guarding, and no masses palpated. Bowel Sounds normal. MUSCULOSKELETAL: Good range of motion of all major joints. Extremities without clubbing, cyanosis or edema. NEUROLOGIC EXAM: Alert and oriented x 3 No focal sensory or strength deficits. Speech normal. Follows commands. PSYCHIATRIC: Mood normal. SKIN: detail exam as documented in skin assessment - Constitutional Vitals: Temp Pulse Resp BP Pulse Ox 98.8 F 96 H 17 183/119 100 08/31/19 08:00 08/31/19 17:30 08/31/19 17:30 08/31/19 17:30 08/31/19 16:00 General appearance: Present: no acute distress, well-nourished HEART Score - HEART Score Troponin: Troponin T < 0.010 ng/mL (0.00-0.029) 08/30/19 20:37 Results - Labs CBC & Chem 7: 08/30/19 02:52 08/31/19 06:29 Labs: Laboratory Last Values WBC 7.8 K/mm3 (4.5-11.0) 08/30/19 02:52 RBC 4.16 M/mm3 (3.65-5.03) 08/30/19 02:52 Hgb 12.7 gm/dl (10.1-14.3) 08/30/19 02:52 Hct 38.4 % (30.3-42.9) 08/30/19 02:52 MCV 92 fl (79-97) 08/30/19 02:52 MCH 31 pg (28-32) 08/30/19 02:52 MCHC 33 % (30-34) 08/30/19 02:52 RDW 14.3 % (13.2-15.2) 08/30/19 02:52 Plt Count 347 K/mm3 (140-440) 08/30/19 02:52 Lymph % (Auto) 10.7 % (13.4-35.0) L 08/30/19 02:52 [place] % (Auto) 1.5 % (0.0-7.3) 08/30/19 02:52 Eos % (Auto) 0.0 % (0.0-4.3) 08/30/19 02:52 Baso % (Auto) 0.9 % (0.0-1.8) 08/30/19 02:52 Lymph # 0.8 K/mm3 (1.2-5.4) L 08/30/19 02:52 [place] # 0.1 K/mm3 (0.0-0.8) 08/30/19 02:52 Eos # 0.0 K/mm3 (0.0-0.4) 08/30/19 02:52 Baso # 0.1 K/mm3 (0.0-0.1) 08/30/19 02:52 Seg Neutrophils % 86.9 % (40.0-70.0) H 08/30/19 02:52 Seg Neutrophils # 6.8 K/mm3 (1.8-7.7) 08/30/19 02:52 VBG pH 7.306 (7.320-7.420) L 08/30/19 02:52 Sodium 138 mmol/L (137-145) 08/31/19 06:29 Potassium 3.2 mmol/L (3.6-5.0) L 08/31/19 06:29 Chloride 105.1 mmol/L (98-107) 08/31/19 06:29 Carbon Dioxide 19 mmol/L (22-30) L D 08/31/19 06:29 Anion Gap 17 mmol/L 08/31/19 06:29 BUN 8 mg/dL (7-17) 08/31/19 06:29 Creatinine 0.6 mg/dL (0.7-1.2) L 08/31/19 06:29 Estimated GFR > 60 ml/min 08/31/19 06:29 BUN/Creatinine Ratio 13 % 08/31/19 06:29 Glucose 148 mg/dL (65-100) H 08/31/19 06:29 Hemoglobin A1c 11.6 % (4-6) H 08/30/19 08:33 Osmolality 298 Mosm/kg 08/30/19 08:33 Calcium 8.3 mg/dL (8.4-10.2) L 08/31/19 06:29 Phosphorus 2.80 mg/dL (2.5-4.5) 08/30/19 08:33 Magnesium 1.80 mg/dL (1.7-2.3) 08/30/19 08:33 Total Bilirubin 0.70 mg/dL (0.1-1.2) 08/30/19 02:52 AST 15 units/L (5-40) 08/30/19 02:52 ALT 16 units/L (7-56) 08/30/19 02:52 Alkaline Phosphatase 97 units/L (35-129) 08/30/19 02:52 Total Creatine Kinase 71 units/L (30-135) 08/30/19 20:37 CK-MB (CK-2) 1.6 ng/mL (0.0-4.0) 08/30/19 20:37 CK-MB (CK-2) Rel Index 2.2 (0-4) 08/30/19 20:37 Troponin T < 0.010 ng/mL (0.00-0.029) 08/30/19 20:37 Total Protein 8.3 g/dL (6.3-8.2) H 08/30/19 02:52 Albumin 4.0 g/dL (3.9-5) 08/30/19 02:52 Albumin/Globulin Ratio 0.9 % 08/30/19 02:52 Triglycerides 71 mg/dL (2-149) 08/30/19 08:33 Cholesterol 182 mg/dL (50-199) 08/30/19 08:33 LDL Cholesterol Direct 60 mg/dL (50-130) 08/30/19 08:33 HDL Cholesterol 125 mg/dL (40-59) H 08/30/19 08:33 Cholesterol/HDL Ratio 1.45 % 08/30/19 08:33 Lipase 10 units/L (13-60) L 08/31/19 14:59 HCG, Qual Negative (Negative) 08/30/19 02:52 Urine Color Yellow (Yellow) 08/30/19 05:42 Urine Turbidity Cloudy (Clear) 08/30/19 05:42 Urine pH 5.0 (5.0-7.0) 08/30/19 05:42 Ur Specific [place] 1.022 (1.003-1.030) 08/30/19 05:42 Urine Protein 100 mg/dl mg/dL (Negative) 08/30/19 05:42 Urine Glucose (UA) >=500 mg/dL (Negative) 08/30/19 05:42 Urine Ketones 80 mg/dL (Negative) 08/30/19 05:42 Urine Blood Neg (Negative) 08/30/19 05:42 Urine Nitrite Neg (Negative) 08/30/19 05:42 Urine Bilirubin Neg (Negative) 08/30/19 05:42 Urine Urobilinogen < 2.0 mg/dL (<2.0) 08/30/19 05:42 Ur Leukocyte Esterase Neg (Negative) 08/30/19 05:42 Urine WBC (Auto) 4.0 /HPF (0.0-6.0) 08/30/19 05:42 Urine RBC (Auto) 2.0 /HPF (0.0-6.0) 08/30/19 05:42 U Epithel Cells (Auto) 43.0 /HPF (0-13.0) H 08/30/19 05:42 Urine Bacteria (Auto) 1+ /HPF (Negative) 08/30/19 05:42 Urine Mucus Few /HPF 08/30/19 05:42 Terry/IV: IV Catheter Type [Left INT / Saline Lock External Jugular] Active Medications - Current Medications Current Medications: Generic Name Dose Route Start Last Admin Trade Name Freq PRN Reason Stop Dose Admin Dextrose 0 ml 08/30/19 03:31 D50w (25gm) Syringe IV Q30MIN PRN Hypoglycemia Protocol Gabapentin 400 mg 08/30/19 14:00 08/31/19 13:19 Gabapentin PO 400 mg Q8HR JOSHUA Administration Hydromorphone HCl 0.5 mg 08/31/19 13:56 Dilaudid IV Q6H PRN Pain , Severe (7-10) Insulin Glargine 20 units 08/31/19 22:00 Lantus SUB-Q QHS [facility] Insulin Human Lispro 0 unit 08/30/19 16:30 08/31/19 13:05 Humalog SUB-Q Not Given ACHS [facility] Protocol Ketorolac Tromethamine 15 mg 08/30/19 09:00 08/31/19 13:18 Toradol IV 09/04/19 08:59 15 mg Q6HR JOSHUA Administration Levothyroxine Sodium 25 mcg 08/31/19 06:00 08/31/19 05:54 Synthroid PO 25 mcg DAILY@0600 JOSHUA Administration Metoclopramide HCl 10 mg 08/30/19 08:23 08/31/19 09:22 Reglan IV 10 mg Q6H PRN Administration Nausea And Vomiting Pantoprazole Sodium 40 mg 08/31/19 10:00 08/31/19 09:01 Protonix PO 40 mg DAILY JOSHUA Administration Sertraline HCl 25 mg 08/30/19 10:00 08/31/19 09:01 Zoloft PO 25 mg QDAY JOSHUA Administration Nutrition/Malnutrition Assess - Dietary Evaluation Nutrition/Malnutrition Findings: Nutrition Notes Start: 08/31/19 13:11 Freq: Status: Active Protocol: Document 08/31/19 13:11 LM (Rec: 08/31/19 13:14 LM [email or web address]) Nutrition Notes Need for Assessment generated from: MD Order Initial or Follow up Brief Note Current Diagnosis Diabetes,Hypertension Other Pertinent Diagnosis DKA, chest pain, hiatal hernia Current Diet Consistent CHO Labs/Tests K 3.2 BG 148 A1c 11.6 Height 4 ft 11 in Weight 59.2 kg [place] Body Weight (kg) 43.18 BMI 26.3 Weight Status Overweight Subjective/Other Information MD consult for diet education. Unable to reach pt. Nutrition Intervention Follow-Up By: 09/01/19 Additional Comments F/U for diet ed
[2019-08-31] MEDS: HYDROmorphone 1 MG/1 ML INJ IV PRN ×2 (18:48→21:43)
[2019-08-31] MEDS: INSULIN GLARGINE 100 UNITS/ML SUB-Q SCH (23:19)
[2019-09-01] MEDS: hydrALAZINE 20 MG/1 ML INJ IV PRN ×2 (01:52→18:09)
[2019-09-01] MEDS: HYDROmorphone 1 MG/1 ML INJ IV PRN ×4 (03:47→21:05)
[2019-09-01] MEDS: METOCLOPRAMIDE 10 MG/2 ML INJ IV PRN (03:48)
[2019-09-01] MEDS: LEVOTHYROXINE 25 MCG TAB PO SCH (05:21)
[2019-09-01] MEDS: KETOROLAC 30 MG/1 ML INJ IV SCH ×3 (05:21→18:17)
[2019-09-01] MEDS: GABAPENTIN 500 MG/10 ML ORAL LIQD PO SCH ×3 (05:26→21:04)
[2019-09-01 07:46] LABS: Hematocrit 35.7 % (30.3-42.9); Hemoglobin 11.9 gm/dl (10.1-14.3); Mean Corpuscular HGB Conc 33 % (30-34); Mean Corpuscular Volume 90 fl (79-97); Platelet Count 314 K/mm3 (140-440); Red Blood Count 3.98 M/mm3 (3.65-5.03); Red Cell Distribution Width 13.9 % (13.2-15.2)
[2019-09-01 08:04] LABS: BUN/Creatinine Ratio 12; Blood Urea Nitrogen 6 mg/dL (7-17); Hemolysis Index 2
[2019-09-01] MEDS: INSULIN LISPRO 100 UNIT/ML SUB-Q SCH ×4 (08:47→21:14)
[2019-09-01] MEDS: PANTOPRAZOLE 40 MG TAB PO SCH (09:22)
[2019-09-01] MEDS: SERTRALINE 25 MG TAB PO SCH (09:22)
[2019-09-01] MEDS ORDERED: POTASSIUM CHLORIDE ER 20 MEQ TAB PO NR (10:30)
--- NOTE | 2019-09-01 10:32 | Progress Note ---
Assessment and Plan Assessment and plan: Patient is a 28-year-old female with past medical history of insulin-dependent diabetes (on insulin pump ) and hypertension presented to the hospital with complaint of chest pain that started for 2 days reproducible and also abdominal pain. Per the patient she was seen at an urgent care facility was noted to have a blood sugar of over 400 at the time but told she was not in DKA but diagnosed with a UTI and was sent home on antibiotics which unfortunately she was unable to feel. She discontinued her insulin pump due to intermittent nausea and vomiting and abdominal pain and was able to tolerate p.o. and today the symptoms worsened prompting her to come to the hospital where she was noted to be in diabetic ketoacidosis. She was also recently diagnosed with hypertension and started on lisinopril but has not started the medication yet. At the time of my evaluation she reported that the chest pain is improved but still feels nauseous although no further vomiting. She still expresses the abdominal pain. Denies any fever. Patient continues to have nausea and vomiting --Diabetic ketoacidosis ; Resolved, diabetic education, nutrition education --Type 1 diabetes mellitus; on insulin pump Moderate control, Accu-Chek sliding scale coverage ADA diet, insulin --Intractable nausea vomiting; Possible gastroparesis, antiemetic Supportive care --Sirs without organ dysfunction Tachypnea, tachycardia --Abdominal pain; secondary to acute gastritis Symptomatic management --Chest pain; noncardiac/costochondritis Supportive care, pain medications --Hypokalemia; replenish per protocol Monitor electrolytes Ambulate as tolerated Closely monitor the patient and adjust the management as needed Possible discharge home tomorrow if stable History Interval history: Patient seen and examined at the bedside today Patient's chart, medications, tests reviewed Patient feels slightly better, blood sugars reasonable level Complains of severe nausea vomiting Unable to hold anything down Vital signs noted Hospitalist Physical - Constitutional Vitals: Temp Pulse Resp BP Pulse Ox 98.2 F 110 H 19 146/97 98 09/01/19 10:09/01/19 10:09/01/19 10:09/01/19 10:09/01/19 07:39 General appearance: Present: mild distress, well-nourished - EENT Eyes: Present: PERRL, EOM intact - Neck Neck: Present: supple, normal ROM - Respiratory Respiratory effort: normal Respiratory: bilateral: diminished, negative: rales, rhonchi, wheezing - Cardiovascular Rhythm: regular Heart Sounds: Present: S1 & S2 - Extremities Extremities: no ischemia, No edema - Abdominal General gastrointestinal: soft, non-tender, non-distended, normal bowel sounds HEART Score - HEART Score Troponin: Troponin T < 0.010 ng/mL (0.00-0.029) 08/30/19 20:37 Results - Labs CBC & Chem 7: 09/01/19 07:00 09/01/19 07:00 Labs: Laboratory Last Values WBC 5.0 K/mm3 (4.5-11.0) 09/01/19 07:00 RBC 3.98 M/mm3 (3.65-5.03) 09/01/19 07:00 Hgb 11.9 gm/dl (10.1-14.3) 09/01/19 07:00 Hct 35.7 % (30.3-42.9) 09/01/19 07:00 MCV 90 fl (79-97) 09/01/19 07:00 MCH 30 pg (28-32) 09/01/19 07:00 MCHC 33 % (30-34) 09/01/19 07:00 RDW 13.9 % (13.2-15.2) 09/01/19 07:00 Plt Count 314 K/mm3 (140-440) 09/01/19 07:00 Lymph % (Auto) 10.7 % (13.4-35.0) L 08/30/19 02:52 [place] % (Auto) 1.5 % (0.0-7.3) 08/30/19 02:52 Eos % (Auto) 0.0 % (0.0-4.3) 08/30/19 02:52 Baso % (Auto) 0.9 % (0.0-1.8) 08/30/19 02:52 Lymph # 0.8 K/mm3 (1.2-5.4) L 08/30/19 02:52 [place] # 0.1 K/mm3 (0.0-0.8) 08/30/19 02:52 Eos # 0.0 K/mm3 (0.0-0.4) 08/30/19 02:52 Baso # 0.1 K/mm3 (0.0-0.1) 08/30/19 02:52 Seg Neutrophils % 86.9 % (40.0-70.0) H 08/30/19 02:52 Seg Neutrophils # 6.8 K/mm3 (1.8-7.7) 08/30/19 02:52 VBG pH 7.306 (7.320-7.420) L 08/30/19 02:52 Sodium 135 mmol/L (137-145) L 09/01/19 07:00 Potassium 3.5 mmol/L (3.6-5.0) L 09/01/19 07:00 Chloride 98.3 mmol/L (98-107) 09/01/19 07:00 Carbon Dioxide 22 mmol/L (22-30) 09/01/19 07:00 Anion Gap 18 mmol/L 09/01/19 07:00 BUN 6 mg/dL (7-17) L 09/01/19 07:00 Creatinine 0.5 mg/dL (0.7-1.2) L 09/01/19 07:00 Estimated GFR > 60 ml/min 09/01/19 07:00 BUN/Creatinine Ratio 12 % 09/01/19 07:00 Glucose 113 mg/dL (65-100) H 09/01/19 07:00 POC Glucose 83 (70-105) 09/01/19 08:57 Hemoglobin A1c 11.6 % (4-6) H 08/30/19 08:33 Osmolality 298 Mosm/kg 08/30/19 08:33 Calcium 9.0 mg/dL (8.4-10.2) 09/01/19 07:00 Phosphorus 2.80 mg/dL (2.5-4.5) 08/30/19 08:33 Magnesium 1.80 mg/dL (1.7-2.3) 08/30/19 08:33 Total Bilirubin 0.70 mg/dL (0.1-1.2) 08/30/19 02:52 AST 15 units/L (5-40) 08/30/19 02:52 ALT 16 units/L (7-56) 08/30/19 02:52 Alkaline Phosphatase 97 units/L (35-129) 08/30/19 02:52 Total Creatine Kinase 71 units/L (30-135) 08/30/19 20:37 CK-MB (CK-2) 1.6 ng/mL (0.0-4.0) 08/30/19 20:37 CK-MB (CK-2) Rel Index 2.2 (0-4) 08/30/19 20:37 Troponin T < 0.010 ng/mL (0.00-0.029) 08/30/19 20:37 Total Protein 8.3 g/dL (6.3-8.2) H 08/30/19 02:52 Albumin 4.0 g/dL (3.9-5) 08/30/19 02:52 Albumin/Globulin Ratio 0.9 % 08/30/19 02:52 Triglycerides 71 mg/dL (2-149) 08/30/19 08:33 Cholesterol 182 mg/dL (50-199) 08/30/19 08:33 LDL Cholesterol Direct 60 mg/dL (50-130) 08/30/19 08:33 HDL Cholesterol 125 mg/dL (40-59) H 08/30/19 08:33 Cholesterol/HDL Ratio 1.45 % 08/30/19 08:33 Lipase 10 units/L (13-60) L 08/31/19 14:59 HCG, Qual Negative (Negative) 08/30/19 02:52 Urine Color Yellow (Yellow) 08/30/19 05:42 Urine Turbidity Cloudy (Clear) 08/30/19 05:42 Urine pH 5.0 (5.0-7.0) 08/30/19 05:42 Ur Specific Anthony 1.022 (1.003-1.030) 08/30/19 05:42 Urine Protein 100 mg/dl mg/dL (Negative) 08/30/19 05:42 Urine Glucose (UA) >=500 mg/dL (Negative) 08/30/19 05:42 Urine Ketones 80 mg/dL (Negative) 08/30/19 05:42 Urine Blood Neg (Negative) 08/30/19 05:42 Urine Nitrite Neg (Negative) 08/30/19 05:42 Urine Bilirubin Neg (Negative) 08/30/19 05:42 Urine Urobilinogen < 2.0 mg/dL (<2.0) 08/30/19 05:42 Ur Leukocyte Esterase Neg (Negative) 08/30/19 05:42 Urine WBC (Auto) 4.0 /HPF (0.0-6.0) 08/30/19 05:42 Urine RBC (Auto) 2.0 /HPF (0.0-6.0) 08/30/19 05:42 U Epithel Cells (Auto) 43.0 /HPF (0-13.0) H 08/30/19 05:42 Urine Bacteria (Auto) 1+ /HPF (Negative) 08/30/19 05:42 Urine Mucus Few /HPF 08/30/19 05:42 Terry/IV: IV Catheter Type [Left INT / Saline Lock External Jugular] Active Medications - Current Medications Current Medications: Generic Name Dose Route Start Last Admin Trade Name Freq PRN Reason Stop Dose Admin Dextrose 0 ml 08/30/19 03:31 D50w (25gm) Syringe IV Q30MIN PRN Hypoglycemia Protocol Gabapentin 400 mg 08/30/19 14:00 09/01/19 05:26 Gabapentin PO Not Given Q8HR JOSHUA Hydralazine HCl 5 mg 09/01/19 00:52 09/01/19 01:52 Apresoline IV 5 mg Q6H PRN Administration Hypertension Hydromorphone HCl 0.5 mg 08/31/19 13:56 09/01/19 09:22 Dilaudid IV 0.5 mg Q6H PRN Administration Pain , Severe (7-10) Insulin Glargine 20 units 08/31/19 22:00 08/31/19 23:19 Lantus SUB-Q 20 units QHS JOSHUA Administration Insulin Human Lispro 0 unit 08/30/19 16:30 09/01/19 08:47 Humalog SUB-Q Not Given ACHS [facility] Protocol Ketorolac Tromethamine 15 mg 08/30/19 09:00 09/01/19 05:21 Toradol IV 09/04/19 08:59 15 mg Q6HR JOSHUA Administration Levothyroxine Sodium 25 mcg 08/31/19 06:00 09/01/19 05:21 Synthroid PO 25 mcg DAILY@0600 JOSHUA Administration Metoclopramide HCl 10 mg 08/30/19 08:23 09/01/19 03:48 Reglan IV 10 mg Q6H PRN Administration Nausea And Vomiting Pantoprazole Sodium 40 mg 08/31/19 10:00 09/01/19 09:22 Protonix PO 40 mg DAILY JOSHUA Administration Potassium Chloride 20 meq 09/01/19 10:30 K-Dur PO 09/01/19 10:31 ONCE ONE Sertraline HCl 25 mg 08/30/19 10:00 09/01/19 09:22 Zoloft PO 25 mg QDAY JOSHUA Administration Nutrition/Malnutrition Assess - Dietary Evaluation Nutrition/Malnutrition Findings: Nutrition Notes Start: 08/31/19 13:11 Freq: Status: Active Protocol: Document 08/31/19 13:11 LM (Rec: 08/31/19 13:14 LM [email or web address]) Nutrition Notes Need for Assessment generated from: MD Order Initial or Follow up Brief Note Current Diagnosis Diabetes,Hypertension Other Pertinent Diagnosis DKA, chest pain, hiatal hernia Current Diet Consistent CHO Labs/Tests K 3.2 BG 148 A1c 11.6 Height 4 ft 11 in Weight 59.2 kg [place] Body Weight (kg) 43.18 BMI 26.3 Weight Status Overweight Subjective/Other Information MD consult for diet education. Unable to reach pt. Nutrition Intervention Follow-Up By: 09/01/19 Additional Comments F/U for diet ed
[2019-09-01] MEDS: METOPROLOL TARTRATE 25 MG TAB PO SCH ×2 (11:58→21:10)
--- NOTE | 2019-09-01 12:22 | Progress Note ---
Assessment and Plan 28 y/o female with Diabetes and HTN admitted with DKA 1. No acute pulmonary issues 2. Will sign off. Call if questions. Subjective Date of service: 09/01/19 Interval history: Successful transfer to the floor. No acute pulmonary events. Objective - Constitutional Vitals: Vital Signs - 12hr 09/01/19 09/01/19 09/01/19 01:00 03:01 04:00 Temperature 98.0 F Pulse Rate 102 H 112 H 110 H Pulse Rate [ Apical] Pulse Rate [ From Monitor] Pulse Rate [ Left Radial] Pulse Rate [ Right Radial] Respiratory 18 Rate Blood Pressure 148/105 Blood Pressure [Left] O2 Sat by Pulse 100 Oximetry 09/01/19 09/01/19 09/01/19 07:39 08:00 09:21 Temperature 98.0 F Pulse Rate 107 H 103 H 105 H Pulse Rate [ Apical] Pulse Rate [ From Monitor] Pulse Rate [ Left Radial] Pulse Rate [ Right Radial] Respiratory 20 Rate Blood Pressure 143/100 146/97 Blood Pressure [Left] O2 Sat by Pulse 98 100 Oximetry 09/01/19 09/01/19 09/01/19 10:00 11:55 11:58 Temperature 98.2 F 97.9 F Pulse Rate 110 H 103 H 103 H Pulse Rate [ 84 Apical] Pulse Rate [ 84 From Monitor] Pulse Rate [ 84 Left Radial] Pulse Rate [ 84 Right Radial] Respiratory 18 20 Rate Blood Pressure 138/94 138/94 Blood Pressure 146/97 [Left] O2 Sat by Pulse 100 99 Oximetry General appearance: Present: no acute distress, well-nourished - EENT Eyes: PERRL, EOM intact ENT: hearing intact, clear oral mucosa - Neck Neck: supple, normal ROM - Respiratory Respiratory effort: normal Respiratory: bilateral: CTA - Labs CBC & Chem 7: 09/01/19 07:00 09/01/19 07:00 Labs: Abnormal lab results 08/30/19 08/30/19 08/30/19 Range/Units 03:09 05:34 06:54 Sodium (137-145) mmol/L Potassium (3.6-5.0) mmol/L BUN (7-17) mg/dL Creatinine (0.7-1.2) mg/dL Glucose (65-100) mg/dL POC Glucose 321 H 373 H 267 H (70-105) Lipase (13-60) units/L 08/30/19 08/30/19 08/30/19 Range/Units 08:13 09:19 12:44 Sodium (137-145) mmol/L Potassium (3.6-5.0) mmol/L BUN (7-17) mg/dL Creatinine (0.7-1.2) mg/dL Glucose (65-100) mg/dL POC Glucose 185 H 142 H 200 H (70-105) Lipase (13-60) units/L 08/30/19 08/30/19 08/30/19 Range/Units 13:18 14:51 15:58 Sodium (137-145) mmol/L Potassium (3.6-5.0) mmol/L BUN (7-17) mg/dL Creatinine (0.7-1.2) mg/dL Glucose (65-100) mg/dL POC Glucose 242 H 276 H 215 H (70-105) Lipase (13-60) units/L 08/30/19 08/30/19 08/30/19 Range/Units 17:15 18:26 19:36 Sodium (137-145) mmol/L Potassium (3.6-5.0) mmol/L BUN (7-17) mg/dL Creatinine (0.7-1.2) mg/dL Glucose (65-100) mg/dL POC Glucose 188 H 166 H 252 H (70-105) Lipase (13-60) units/L 08/30/19 08/30/19 08/30/19 Range/Units 20:43 21:13 22:18 Sodium (137-145) mmol/L Potassium (3.6-5.0) mmol/L BUN (7-17) mg/dL Creatinine (0.7-1.2) mg/dL Glucose (65-100) mg/dL POC Glucose 263 H 250 H 201 H (70-105) Lipase (13-60) units/L 08/30/19 08/31/19 08/31/19 Range/Units 22:57 00:24 01:12 Sodium (137-145) mmol/L Potassium (3.6-5.0) mmol/L BUN (7-17) mg/dL Creatinine (0.7-1.2) mg/dL Glucose (65-100) mg/dL POC Glucose 177 H 142 H 117 H (70-105) Lipase (13-60) units/L 08/31/19 08/31/19 08/31/19 Range/Units 02:14 03:16 04:05 Sodium (137-145) mmol/L Potassium (3.6-5.0) mmol/L BUN (7-17) mg/dL Creatinine (0.7-1.2) mg/dL Glucose (65-100) mg/dL POC Glucose 139 H 142 H 146 H (70-105) Lipase (13-60) units/L 08/31/19 08/31/19 08/31/19 Range/Units 05:29 06:08 07:33 Sodium (137-145) mmol/L Potassium (3.6-5.0) mmol/L BUN (7-17) mg/dL Creatinine (0.7-1.2) mg/dL Glucose (65-100) mg/dL POC Glucose 142 H 149 H 142 H (70-105) Lipase (13-60) units/L 08/31/19 08/31/19 08/31/19 Range/Units 10:31 12:11 14:59 Sodium (137-145) mmol/L Potassium (3.6-5.0) mmol/L BUN (7-17) mg/dL Creatinine (0.7-1.2) mg/dL Glucose (65-100) mg/dL POC Glucose 134 H 62 L (70-105) Lipase 10 L (13-60) units/L 08/31/19 08/31/19 09/01/19 Range/Units 17:55 22:09 07:00 Sodium 135 L (137-145) mmol/L Potassium 3.5 L (3.6-5.0) mmol/L BUN 6 L (7-17) mg/dL Creatinine 0.5 L (0.7-1.2) mg/dL Glucose 113 H (65-100) mg/dL POC Glucose 265 H 220 H (70-105) Lipase (13-60) units/L Medications & Allergies - Medications Allergies/Adverse Reactions: Allergies No Known Allergies Allergy (Unverified 08/30/19 02:45) Home Medications: Home Medications Medication Instructions Recorded Confirmed Last Taken Type Levothyroxine [Synthroid] 25 mcg PO QAM 08/31/19 08/31/19 Unknown History traMADoL [Ultram 50 MG tab] 1 tab PO BID PRN MDD pain 08/31/19 09/01/19 08/28/19 10:00 History 1 TAB Active Medications: Generic Name Dose Route Start Last Admin Trade Name Freq PRN Reason Stop Dose Admin Dextrose 0 ml 08/30/19 03:31 D50w (25gm) Syringe IV Q30MIN PRN Hypoglycemia Protocol Gabapentin 400 mg 08/30/19 14:00 09/01/19 05:26 Gabapentin PO Not Given Q8HR JOSHUA Hydralazine HCl 5 mg 09/01/19 00:52 09/01/19 01:52 Apresoline IV 5 mg Q6H PRN Administration Hypertension Hydromorphone HCl 0.5 mg 08/31/19 13:56 09/01/19 09:22 Dilaudid IV 0.5 mg Q6H PRN Administration Pain , Severe (7-10) Insulin Glargine 20 units 08/31/19 22:00 08/31/19 23:19 Lantus SUB-Q 20 units QHS JOSHUA Administration Insulin Human Lispro 0 unit 08/30/19 16:30 09/01/19 11:33 Humalog SUB-Q Not Given ACHS [facility] Protocol Ketorolac Tromethamine 15 mg 08/30/19 09:00 09/01/19 12:00 Toradol IV 09/04/19 08:59 15 mg Q6HR JOSHUA Administration Levothyroxine Sodium 25 mcg 08/31/19 06:00 09/01/19 05:21 Synthroid PO 25 mcg DAILY@0600 JOSHUA Administration Metoclopramide HCl 10 mg 08/30/19 08:23 09/01/19 03:48 Reglan IV 10 mg Q6H PRN Administration Nausea And Vomiting Metoprolol Tartrate 12.5 mg 09/01/19 11:00 09/01/19 11:58 Metoprolol PO 12.5 mg BID JOSHUA Administration Pantoprazole Sodium 40 mg 08/31/19 10:00 09/01/19 09:22 Protonix PO 40 mg DAILY JOSHUA Administration Sertraline HCl 25 mg 08/30/19 10:00 09/01/19 09:22 Zoloft PO 25 mg QDAY JOSHUA Administration HEART Score - HEART Score Troponin: Troponin T < 0.010 ng/mL (0.00-0.029) 08/30/19 20:37
[2019-09-01] MEDS: INSULIN GLARGINE 100 UNITS/ML SUB-Q SCH (21:09)
[2019-09-02] MEDS: KETOROLAC 30 MG/1 ML INJ IV SCH ×5 (01:09→23:16)
[2019-09-02] MEDS: METOCLOPRAMIDE 10 MG/2 ML INJ IV PRN ×3 (01:09→12:21)
--- NOTE | 2019-09-02 02:15 | Cat Scan Report ---
CT abdomen pelvis w con INDICATION: Epigastric abdominal pain, nausea, vomiting for 3 days TECHNIQUE: All CT scans at this location are performed using the following dose modulation technique: Automated exposure control. Helical slices were obtained through the abdomen and pelvis. 100 cc of Omnipaque 30 0 is administered. COMPARISON: CT scan dated 08/30/2019. FINDINGS: Abdomen: No acute abnormality is seen in the lower chest. There is a small hiatal hernia. The liver, spleen, pancreas, adrenal glands, and kidneys show no acute abnormality. There is no obstruction or f ree air. There is been interval development of wall thickening in the colon characteristic of colitis. The nisa endix is unremarkable. Pelvis: There is no obstruction or inflammation. There is a small amount of free fluid in the depende nt portion of the pelvis characteristic of physiologic fluid. The urinary bladder is less distended o n today's study. On review of bone windows, no acute osseous abnormalities are seen. IMPRESSION: 1. There has been interval development of wall thickening in the colon characteristic of colitis. No obstruction or free air is seen. Signer Name: Miguel Colon MD Signed: 09/02/2019 2:10 AM Workstation Name: [id number]
[2019-09-02] MEDS: HYDROmorphone 1 MG/1 ML INJ IV PRN ×4 (03:51→21:21)
[2019-09-02] MEDS: LEVOTHYROXINE 25 MCG TAB PO SCH (05:49)
[2019-09-02] MEDS: GABAPENTIN 500 MG/10 ML ORAL LIQD PO SCH ×3 (05:55→21:23)
[2019-09-02] MEDS: INSULIN LISPRO 100 UNIT/ML SUB-Q SCH ×4 (07:40→21:32)
[2019-09-02] MEDS: METOPROLOL TARTRATE 25 MG TAB PO SCH ×2 (10:14→21:22)
[2019-09-02] MEDS: metroNIDAZOLE/NS 500 MG/100 ML 500 MG/100 ML BAG IV SCH ×3 (10:14→21:22)
[2019-09-02] MEDS: SERTRALINE 25 MG TAB PO SCH (10:14)
[2019-09-02] MEDS: PANTOPRAZOLE 40 MG TAB PO SCH (10:14)
--- NOTE | 2019-09-02 18:53 | Progress Note ---
Assessment and Plan Assessment and plan: Patient is a 28-year-old female with past medical history of insulin-dependent diabetes (on insulin pump ) and hypertension presented to the hospital with complaint of chest pain that started for 2 days reproducible and also abdominal pain. Per the patient she was seen at an urgent care facility was noted to have a blood sugar of over 400 at the time but told she was not in DKA but diagnosed with a UTI and was sent home on antibiotics which unfortunately she was unable to feel. She discontinued her insulin pump due to intermittent nausea and vomiting and abdominal pain and was able to tolerate p.o. and today the symptoms worsened prompting her to come to the hospital where she was noted to be in diabetic ketoacidosis. She was also recently diagnosed with hypertension and started on lisinopril but has not started the medication yet. At the time of my evaluation she reported that the chest pain is improved but still feels nauseous although no further vomiting. She still expresses the abdominal pain. Denies any fever. Patient continues to have nausea and vomiting. CT abdomen and pelvis findings consistent with acute colitis --Acute colitis; n.p.o. status IV fluids, IV antibiotics Levaquin and Flagyl Pain medications. Consult GI as needed --Diabetic ketoacidosis ; Resolved, diabetic education, nutrition education --Type 1 diabetes mellitus; on insulin pump Moderate control, Accu-Chek sliding scale coverage ADA diet, insulin --Intractable nausea vomiting; Possible gastroparesis, antiemetic Supportive care --Sirs without organ dysfunction Tachypnea, tachycardia --Abdominal pain; secondary to acute colitis --Chest pain; noncardiac/costochondritis Supportive care, pain medications --Hypokalemia; replenish per protocol Monitor electrolytes Ambulate as tolerated Closely monitor the patient and adjust the management as needed Plan of care reviewed with the patient and her nurse History Interval history: Patient seen and examined at the bedside this morning Patient's chart, CT abdomen findings reviewed Patient has acute colitis Patient complains of abdominal pain mild nausea Alert awake mild distress Vital signs reviewed Hospitalist Physical - Constitutional Vitals: Temp Pulse Resp BP Pulse Ox 97.6 F 92 H 18 131/98 99 09/02/19 16:35 09/02/19 16:35 09/02/19 16:35 09/02/19 16:35 09/02/19 16:35 General appearance: Present: mild distress, well-nourished - EENT Eyes: Present: PERRL, EOM intact - Neck Neck: Present: supple, normal ROM - Respiratory Respiratory effort: normal Respiratory: bilateral: diminished, negative: rales, rhonchi, wheezing - Cardiovascular Rhythm: regular Heart Sounds: Present: S1 & S2 - Extremities Extremities: no ischemia, No edema - Abdominal General gastrointestinal: soft, tender (No guarding no rigidity), normal bowel sounds, no distended - Integumentary Integumentary: Present: clear, warm - Psychiatric Psychiatric: appropriate mood/affect, cooperative - Neurologic Neurologic: moves all extremities HEART Score - HEART Score Troponin: Troponin T < 0.010 ng/mL (0.00-0.029) 08/30/19 20:37 Results - Labs CBC & Chem 7: 09/01/19 07:00 09/01/19 07:00 Labs: Laboratory Last Values WBC 5.0 K/mm3 (4.5-11.0) 09/01/19 07:00 RBC 3.98 M/mm3 (3.65-5.03) 09/01/19 07:00 Hgb 11.9 gm/dl (10.1-14.3) 09/01/19 07:00 Hct 35.7 % (30.3-42.9) 09/01/19 07:00 MCV 90 fl (79-97) 09/01/19 07:00 MCH 30 pg (28-32) 09/01/19 07:00 MCHC 33 % (30-34) 09/01/19 07:00 RDW 13.9 % (13.2-15.2) 09/01/19 07:00 Plt Count 314 K/mm3 (140-440) 09/01/19 07:00 Lymph % (Auto) 10.7 % (13.4-35.0) L 08/30/19 02:52 [place] % (Auto) 1.5 % (0.0-7.3) 08/30/19 02:52 Eos % (Auto) 0.0 % (0.0-4.3) 08/30/19 02:52 Baso % (Auto) 0.9 % (0.0-1.8) 08/30/19 02:52 Lymph # 0.8 K/mm3 (1.2-5.4) L 08/30/19 02:52 [place] # 0.1 K/mm3 (0.0-0.8) 08/30/19 02:52 Eos # 0.0 K/mm3 (0.0-0.4) 08/30/19 02:52 Baso # 0.1 K/mm3 (0.0-0.1) 08/30/19 02:52 Seg Neutrophils % 86.9 % (40.0-70.0) H 08/30/19 02:52 Seg Neutrophils # 6.8 K/mm3 (1.8-7.7) 08/30/19 02:52 VBG pH 7.306 (7.320-7.420) L 08/30/19 02:52 Sodium 135 mmol/L (137-145) L 09/01/19 07:00 Potassium 3.5 mmol/L (3.6-5.0) L 09/01/19 07:00 Chloride 98.3 mmol/L (98-107) 09/01/19 07:00 Carbon Dioxide 22 mmol/L (22-30) 09/01/19 07:00 Anion Gap 18 mmol/L 09/01/19 07:00 BUN 6 mg/dL (7-17) L 09/01/19 07:00 Creatinine 0.5 mg/dL (0.7-1.2) L 09/01/19 07:00 Estimated GFR > 60 ml/min 09/01/19 07:00 BUN/Creatinine Ratio 12 % 09/01/19 07:00 Glucose 113 mg/dL (65-100) H 09/01/19 07:00 POC Glucose 151 (70-105) H 09/02/19 16:49 Hemoglobin A1c 11.6 % (4-6) H 08/30/19 08:33 Osmolality 298 Mosm/kg 08/30/19 08:33 Calcium 9.0 mg/dL (8.4-10.2) 09/01/19 07:00 Phosphorus 2.80 mg/dL (2.5-4.5) 08/30/19 08:33 Magnesium 1.80 mg/dL (1.7-2.3) 08/30/19 08:33 Total Bilirubin 0.70 mg/dL (0.1-1.2) 08/30/19 02:52 AST 15 units/L (5-40) 08/30/19 02:52 ALT 16 units/L (7-56) 08/30/19 02:52 Alkaline Phosphatase 97 units/L (35-129) 08/30/19 02:52 Total Creatine Kinase 71 units/L (30-135) 08/30/19 20:37 CK-MB (CK-2) 1.6 ng/mL (0.0-4.0) 08/30/19 20:37 CK-MB (CK-2) Rel Index 2.2 (0-4) 08/30/19 20:37 Troponin T < 0.010 ng/mL (0.00-0.029) 08/30/19 20:37 Total Protein 8.3 g/dL (6.3-8.2) H 08/30/19 02:52 Albumin 4.0 g/dL (3.9-5) 08/30/19 02:52 Albumin/Globulin Ratio 0.9 % 08/30/19 02:52 Triglycerides 71 mg/dL (2-149) 08/30/19 08:33 Cholesterol 182 mg/dL (50-199) 08/30/19 08:33 LDL Cholesterol Direct 60 mg/dL (50-130) 08/30/19 08:33 HDL Cholesterol 125 mg/dL (40-59) H 08/30/19 08:33 Cholesterol/HDL Ratio 1.45 % 08/30/19 08:33 Lipase 10 units/L (13-60) L 08/31/19 14:59 HCG, Qual Negative (Negative) 09/02/19 00:17 Urine Color Yellow (Yellow) 08/30/19 05:42 Urine Turbidity Cloudy (Clear) 08/30/19 05:42 Urine pH 5.0 (5.0-7.0) 08/30/19 05:42 Ur Specific [place] 1.022 (1.003-1.030) 08/30/19 05:42 Urine Protein 100 mg/dl mg/dL (Negative) 08/30/19 05:42 Urine Glucose (UA) >=500 mg/dL (Negative) 08/30/19 05:42 Urine Ketones 80 mg/dL (Negative) 08/30/19 05:42 Urine Blood Neg (Negative) 08/30/19 05:42 Urine Nitrite Neg (Negative) 08/30/19 05:42 Urine Bilirubin Neg (Negative) 08/30/19 05:42 Urine Urobilinogen < 2.0 mg/dL (<2.0) 08/30/19 05:42 Ur Leukocyte Esterase Neg (Negative) 08/30/19 05:42 Urine WBC (Auto) 4.0 /HPF (0.0-6.0) 08/30/19 05:42 Urine RBC (Auto) 2.0 /HPF (0.0-6.0) 08/30/19 05:42 U Epithel Cells (Auto) 43.0 /HPF (0-13.0) H 08/30/19 05:42 Urine Bacteria (Auto) 1+ /HPF (Negative) 08/30/19 05:42 Urine Mucus Few /HPF 08/30/19 05:42 Terry/IV: Voiding Method Toilet IV Catheter Type [Left INT / Saline Lock External Jugular] Active Medications - Current Medications Current Medications: Generic Name Dose Route Start Last Admin Trade Name Freq PRN Reason Stop Dose Admin Dextrose 0 ml 08/30/19 03:31 09/02/19 07:39 D50w (25gm) Syringe IV 20 ml Q30MIN PRN Administration Hypoglycemia Protocol Gabapentin 400 mg 08/30/19 14:00 09/02/19 14:13 Gabapentin PO 400 mg Q8HR JOSHUA Administration Hydralazine HCl 5 mg 09/01/19 00:52 09/01/19 18:09 Apresoline IV 5 mg Q6H PRN Administration Hypertension Hydromorphone HCl 0.5 mg 08/31/19 13:56 09/02/19 16:02 Dilaudid IV 0.5 mg Q6H PRN Administration Pain , Severe (7-10) Levofloxacin/Dextrose 750 mg in 150 mls @ 100 mls/hr 09/02/19 10:00 09/02/19 10:14 Levaquin 750mg/150ml IV 100 mls/hr Q24HR JOSHUA Administration Protocol Metronidazole 500 mg in 100 mls @ 100 mls/hr 09/02/19 08:15 09/02/19 14:12 Flagyl 500 Mg/100 Ml IV 100 mls/hr Q8HR JOSHUA Administration Protocol Insulin Glargine 20 units 08/31/19 22:00 09/01/19 21:09 Lantus SUB-Q 20 units QHS JOSHUA Administration Insulin Human Lispro 0 unit 08/30/19 16:30 09/02/19 17:25 Humalog SUB-Q Not Given ACHS [facility] Protocol Ketorolac Tromethamine 15 mg 08/30/19 09:00 09/02/19 17:34 Toradol IV 09/04/19 08:59 15 mg Q6HR JOSHUA Administration Levothyroxine Sodium 25 mcg 08/31/19 06:00 09/02/19 05:49 Synthroid PO 25 mcg DAILY@0600 JOSHUA Administration Metoclopramide HCl 10 mg 08/30/19 08:23 09/02/19 12:21 Reglan IV 10 mg Q6H PRN Administration Nausea And Vomiting Metoprolol Tartrate 12.5 mg 09/01/19 11:00 09/02/19 10:14 Metoprolol PO 12.5 mg BID JOSHUA Administration Pantoprazole Sodium 40 mg 08/31/19 10:00 09/02/19 10:14 Protonix PO 40 mg DAILY JOSHUA Administration Sertraline HCl 25 mg 08/30/19 10:00 09/02/19 10:14 Zoloft PO 25 mg QDAY JOSHUA Administration Nutrition/Malnutrition Assess - Dietary Evaluation Nutrition/Malnutrition Findings: Nutrition Notes Start: 08/31/19 13:11 Freq: Status: Active Protocol: Document 09/02/19 12:42 LM (Rec: 09/02/19 12:47 LM [email or web address]) Nutrition Notes Initial or Follow up Brief Note Current Diagnosis Diabetes,Hypertension Other Pertinent Diagnosis DKA, chest pain, hiatal hernia Current Diet Consistent CHO Subjective/Other Information Pt getting CT scan. Nutrition Intervention Follow-Up By: 09/03/19 Additional Comments F/U for diet ed
[2019-09-02] MEDS: INSULIN GLARGINE 100 UNITS/ML SUB-Q SCH (21:23)
[2019-09-03] MEDS: KETOROLAC 30 MG/1 ML INJ IV SCH ×2 (05:20→11:56)
[2019-09-03] MEDS: LEVOTHYROXINE 25 MCG TAB PO SCH (05:20)
[2019-09-03] MEDS: metroNIDAZOLE/NS 500 MG/100 ML 500 MG/100 ML BAG IV SCH ×2 (05:20→15:45)
[2019-09-03] MEDS: GABAPENTIN 500 MG/10 ML ORAL LIQD PO SCH ×2 (06:37→16:31)
[2019-09-03] MEDS: INSULIN LISPRO 100 UNIT/ML SUB-Q SCH ×2 (07:30→11:58)
[2019-09-03] MEDS: HYDROmorphone 1 MG/1 ML INJ IV PRN ×2 (08:15→13:05)
--- NOTE | 2019-09-03 10:01 | Consultation ---
History of Present Illness - Reason for Consult Consult date: 09/03/19 colitis Requesting physician: МАРИЯ MALLOY - History of Present Illness 28 yo BF with a history of insulin-dependent diabetes since age 16, on whom I am consulted for change in CT with interval development of colitis from August [address] on September 01. Patient has history of intermittent admissions for diabetes and DKA but usually approximately once a year. Her diabetic control has been poor in general. She is usually hospitalized in [facility] but is here now as she was visiting her boyfriend. She was admitted on August 29 with a 2-day history of nausea and vomiting with subsequent chest and abdominal pain. She had been diagnosed with a UTI just prior to that but had not yet started her antibiotics. Here in the hospital, she has been treated for her DKA and been on antibiotics and is now almost back to normal with only mild nausea and minimal discomfort. Patient states that she has a longstanding history of GERD for over 3 or 4 years and was to be on omeprazole on a daily basis but takes it intermittently. She has a 3 to 4-year history of intermittent problems with vom iting. She also has a more than 1 year history of diarrhea that she is unable to quantify for me, but states that it is usually loose or liquid brown stool occurring multiple times a day and occasionally even at nighttime. Patient states that she was evaluated for this last year with an upper endoscopy as well as a colonoscopy which were reportedly normal. She denies any change in her bowel habits. There is no rectal bleeding. She does note occasional bright red blood with emesis when she has been vomiting a lot. There is no fevers chills or sweats, shortness of breath there is no weight loss. Meds reviewed. Past History Past Medical History: diabetes, GERD, hypertension Past Surgical History: No surgical history Social history: no significant social history Family history: no significant family history Medications and Allergies Allergies Allergy/AdvReac Type Severity Reaction Status Date / Time No Known Allergies Allergy Unverified 08/30/19 02:45 Home Medications Medication Instructions Recorded Confirmed Last Taken Type Levothyroxine [Synthroid] 25 mcg PO QAM 08/31/19 08/31/19 Unknown History traMADoL [Ultram 50 MG tab] 1 tab PO BID PRN MDD pain 08/31/19 09/01/19 08/28/19 10:00 History 1 TAB Active Meds: Active Medications Dextrose (D50w (25gm) Syringe) 0 ml IV Q30MIN PRN; Protocol PRN Reason: Hypoglycemia Last Admin: 09/02/19 07:39 Dose: 20 ml Documented by: Gabapentin (Gabapentin) 400 mg PO Q8HR JOSHUA Last Admin: 09/03/19 06:37 Dose: Not Given Documented by: Hydralazine HCl (Apresoline) 5 mg IV Q6H PRN PRN Reason: Hypertension Last Admin: 09/01/19 18:09 Dose: 5 mg Documented by: Hydromorphone HCl (Dilaudid) 0.5 mg IV Q6H PRN PRN Reason: Pain , Severe (7-10) Last Admin: 09/02/19 21:21 Dose: 0.5 mg Documented by: Levofloxacin/Dextrose (Levaquin 750mg/150ml) 750 mg in 150 mls @ 100 mls/hr IV Q24HR JOSHUA; Protocol Last Admin: 09/02/19 10:14 Dose: 100 mls/hr Documented by: Metronidazole (Flagyl 500 Mg/100 Ml) 500 mg in 100 mls @ 100 mls/hr IV Q8HR JOSHUA; Protocol Last Admin: 09/03/19 05:20 Dose: 100 mls/hr Documented by: Insulin Glargine (Lantus) 20 units SUB-Q QHS [facility] Last Admin: 09/02/19 21:23 Dose: Not Given Documented by: Insulin Human Lispro (Humalog) 0 unit SUB-Q ACHS [facility]; Protocol Last Admin: 09/02/19 21:32 Dose: Not Given Documented by: Ketorolac Tromethamine (Toradol) 15 mg IV Q6HR [facility] Stop: 09/04/19 08:59 Last Admin: 09/03/19 05:20 Dose: 15 mg Documented by: Levothyroxine Sodium (Synthroid) 25 mcg PO DAILY@0600 [facility] Last Admin: 09/03/19 05:20 Dose: 25 mcg Documented by: Metoclopramide HCl (Reglan) 10 mg IV Q6H PRN PRN Reason: Nausea And Vomiting Last Admin: 09/02/19 12:21 Dose: 10 mg Documented by: Metoprolol Tartrate (Metoprolol) 12.5 mg PO BID [facility] Last Admin: 09/02/19 21:22 Dose: 12.5 mg Documented by: Pantoprazole Sodium (Protonix) 40 mg PO DAILY [facility] Last Admin: 09/02/19 10:14 Dose: 40 mg Documented by: Sertraline HCl (Zoloft) 25 mg PO QDAY [facility] Last Admin: 09/02/19 10:14 Dose: 25 mg Documented by: Review of Systems All systems: negative (as noted above) Exam - Constitutional Vitals: Temp Pulse Resp BP Pulse Ox 98.7 F 104 H 18 145/97 100 09/03/19 07:38 09/03/19 07:38 09/03/19 07:38 09/03/19 07:38 09/03/19 07:38 General appearance: Present: no acute distress - EENT Eyes: Present: PERRL, EOM intact ENT: hearing intact - Respiratory Respiratory effort: normal Respiratory: bilateral: CTA - Cardiovascular Rhythm: regular Heart Sounds: Present: S1 & S2 - Extremities Extremities: No edema - Abdominal General gastrointestinal: Present: soft, non-tender Results - Labs CBC & Chem 7: 09/01/19 07:00 09/01/19 07:00 Labs: Abnormal lab results 09/02/19 09/02/19 09/02/19 Range/Units 10:25 10:53 16:49 POC Glucose 180 H 176 H 151 H (70-105) 09/02/19 Range/Units 22:20 POC Glucose 169 H (70-105) - Imaging and Cardiology CT scan - abdomen: report reviewed (Both CTs reviewed with Dr. Lomas, Radiology. No significant colitis noted, and change in transverse colon most c/w mild wall thickening seen due to collapsed colon, with no inflammation.) Assessment and Plan 1. Colitis -the CT finding of colitis is spuriously and due to a collapsed colon wall. There is no clinical evidence of change in bowel habits and no laboratory data to suggest an infectious or inflammatory process. -No further evaluation warranted. 2. GERD-patient should stay on PPI daily. 3. N/V -nearly resolved. May advance diet. This is most consistent with underlying diabetic gastroparesis and triggered by infection or other stressors. Patient urged to maintain tighter control of diabetes. 4. Diarrhea -chronic. Likely worked up as outpatient since patient had colonoscopy last year. 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 Imodium does not help. -Would give empiric trial of WelChol daily to see if this helps. -Otherwise, outpatient evaluation. No further GI recommendations. Will sign off.
[2019-09-03] MEDS: SERTRALINE 25 MG TAB PO SCH (10:29)
[2019-09-03] MEDS: METOPROLOL TARTRATE 25 MG TAB PO SCH (10:29)
[2019-09-03] MEDS: PANTOPRAZOLE 40 MG TAB PO SCH (10:29)
[2019-09-03] MEDS: METOCLOPRAMIDE 10 MG/2 ML INJ IV PRN (10:46)
[2019-09-03] MEDS ORDERED: COLESEVELAM 625 MG TAB PO SCH (11:00)
[2019-09-03 12:30] VITALS: BP 163/114
[2019-09-03] MEDS: hydrALAZINE 20 MG/1 ML INJ IV PRN (12:31)
--- NOTE | 2019-09-03 15:55 | Discharge Summary ---
Providers - Providers Date of Admission: 08/30/19 05:46 Date of discharge: 09/03/19 Attending physician: МАРИЯ MALLOY 08/30/19 03:31 Consult to Dietitian/Nutrition [CONS] Routine Physician Instructions: Reason For Exam: DKA Reason for Consult: Nutrition Recommendations Reason for Consult: Diet education 08/30/19 07:54 Consult to Dietitian/Nutrition [CONS] Routine Physician Instructions: Reason For Exam: DKA Reason for Consult: Nutrition Recommendations Reason for Consult: Diet education Consult to Physician [CONS] Routine Comment: Consulting Provider: JOSE MANUEL REYNOSO Physician Instructions: Reason For Exam: dka 09/03/19 08:51 Consult to Physician [CONS] Routine Comment: Consulting Provider: MARÍA AGOSTO Physician Instructions: Reason For Exam: Acute colitis Hospitalization Reason for admission: Diabetic ketoacidosis/chest pain/abdominal pain Condition: Stable Pertinent studies: CT abdomen and pelvis x2 Chest x-ray Hospital course: Patient is a 28-year-old female with past medical history of insulin-dependent diabetes (on insulin pump ) and hypertension presented to the hospital with complaint of chest pain that started for 2 days reproducible and also abdominal pain. Per the patient she was seen at an urgent care facility was noted to have a blood sugar of over 400 at the time but told she was not in DKA but diagnosed with a UTI and was sent home on antibiotics which unfortunately she was unable to feel. She discontinued her insulin pump due to intermittent nausea and vomiting and abdominal pain and was able to tolerate p.o. and today the symptoms worsened prompting her to come to the hospital where she was noted to be in diabetic ketoacidosis. Admitted to ICU managed according to DKA protocol blood sugars brought to reasonable level Patient continued to have abdominal pain nausea vomiting CT abdomen and pelvis findings consistent with acute colitis Placed n.p.o. status started empiric antibiotics consulted GI GI evaluated the imaging studies, report does not look like acute colitis Recommended DC antibiotics and start diabetic diet Today patient is comfortable no new complaints vital signs stable tolerated food Hemodynamically and clinically stable at discharge --Acute colitis; 2 days of antibiotics GI evaluated the patient, rule out acute colitis Resume ADA diet Cleared for discharge --Diabetic ketoacidosis ; Resolved, diabetic education, nutrition education --Type 1 diabetes mellitus; on insulin pump Moderate control, Accu-Chek sliding scale coverage ADA diet, insulin --Intractable nausea vomiting; Possible gastroparesis, antiemetic Supportive care --Sirs without organ dysfunction Tachypnea, tachycardia --Abdominal pain; secondary to acute colitis --Chest pain; noncardiac/costochondritis Supportive care, pain medications --Hypokalemia; replenish per protocol Monitor electrolytes Ambulate as tolerated Stable at discharge Disposition: DC- TO HOME OR SELFCARE Time spent for discharge: 32 MIN Core Measure Documentation - Palliative Care Palliative Care/ Comfort Measures: Not Applicable - Core Measures Any of the following diagnoses?: none Exam - Constitutional Vitals: Temp Pulse Resp BP Pulse Ox 98.6 F 102 H 18 163/114 100 09/03/19 11:48 09/03/19 11:48 09/03/19 11:48 09/03/19 11:48 09/03/19 11:48 General appearance: Present: no acute distress, well-nourished - EENT Eyes: Present: PERRL, EOM intact - Neck Neck: Present: supple, normal ROM - Respiratory Respiratory effort: normal Respiratory: bilateral: diminished, negative: rales, rhonchi, wheezing - Cardiovascular Rhythm: regular Heart Sounds: Present: S1 & S2 - Extremities Extremities: no ischemia, No edema - Abdominal General gastrointestinal: Present: soft, non-tender, non-distended, normal bowel sounds - Integumentary Integumentary: Present: clear, warm - Musculoskeletal Musculoskeletal: strength equal bilaterally - Psychiatric Psychiatric: appropriate mood/affect, cooperative - Neurologic Neurologic: moves all extremities Plan Activity: advance as tolerated Diet: diabetic Additional Instructions: Resume insulin pump. Advised to see private transport nurse for diabetes management. If your symptoms worsen contact MD or go to emergency room. Advised to follow GI in 1 to 2 weeks Follow up with: TIM HAWKINS [Other] - 7 Days Prescriptions: Metoprolol [Lopressor TAB] 12.5 mg PO BID #60 tablet Pantoprazole [Protonix TAB] 40 mg PO DAILY #30 tablet Colesevelam [Welchol] 3,750 mg PO QDAY #30 tablet
[2019-09-03] MEDS ORDERED: INSULIN LISPRO 100 UNIT/ML SUB-Q SCH (16:30)
== END 2019-09-03 19:59 | disposition home or self-care (01) | DRG 638 ==
LOC: ED 02:35 → CC1 05:46 → 4A 08-31 18:28
PROVIDERS: ADMIT Internal Medicine Geriatric Medicine; ATTEND Internal Medicine
DX: E10.10 Type 1 diabetes mellitus with ketoacidosis without coma (principal); R65.10 Systemic inflammatory response syndrome (SIRS) of non-infectious origin without acute organ dysfunction; M94.0 Chondrocostal junction syndrome [Tietze]; R07.9 Chest pain, unspecified; I16.0 Hypertensive urgency; I10 Essential (primary) hypertension; E03.9 Hypothyroidism, unspecified; K44.9 Diaphragmatic hernia without obstruction or gangrene; Z82.49 Family history of ischemic heart disease and other diseases of the circulatory system; E10.43 Type 1 diabetes mellitus with diabetic autonomic (poly)neuropathy; K31.84 Gastroparesis; K29.00 Acute gastritis without bleeding; E87.6 Hypokalemia; K52.9 Noninfective gastroenteritis and colitis, unspecified; K21.9 Gastro-esophageal reflux disease without esophagitis
CPT/HCPCS: 36415; 71045; 74176; 74177; 80048; 80053; 80061; 81001; 82550; 82553; 82805; 82962; 83036; 83690; 83735; 83930; 84100; 84484; 84703; 85025; 85027; 93005; G0378; C9113; J0360; J1170; J1815; J1885; J1956; J2270; J2405; J2765; J7030; Q9967